=== PATIENT | male | born 1980 | race Hispanic/Latino ===

== ENCOUNTER 2021-12-19 13:31 | Emergency (ER) | payer OTHER ==
[~2021-12-19] VITALS: Ht 160 cm; Wt 77.1 kg
[2021-12-19 14:10] LABS: BASOPHILS % (AUTO) 0.4 % (0.0-5.0); EOSINOPHILS % (AUTO) 0.7 % (0.0-8.0); HEMATOCRIT 45.1 % (42-54); LYMPHOCYTES % (AUTO) 14.1 % (21.0-51.0); MEAN CORPUSCULAR HEMOGLOBIN 30.1 pg (27.0-33.0); MEAN CORPUSCULAR HGB CONC 35.5 g/dL (32.0-36.0); MEAN CORPUSCULAR VOLUME 84.9 fL (79-99); MONOCYTES % (AUTO) 5.8 % (3.0-13.0); NEUTROPHILS % (AUTO) 78.4 % (40.0-77.0); PLATELET COUNT (AUTO) 261 K/uL (130-400); RED BLOOD CELL COUNT(AUTO) 5.31 MIL/uL (4.50-6.20); RED CELL DISTRIBUTION WIDTH 12.8 % (11.0-15.5); WHITE BLOOD COUNT (AUTO) 11.8 K/uL (4.8-10.8)
[2021-12-19 14:20] LABS: APPEARANCE,URINE CLOUDY (CLEAR); BILIRUBIN,URINE NEGATIVE (NEGATIVE); COLOR,URINE YELLOW (YELLOW); CREATININE 1.3 mg/dL (0.5-1.5); GLUCOSE, URINE (UA) NEGATIVE (NEGATIVE); KETONES,URINE NEGATIVE (NEGATIVE); LEUKOCYTE ESTERASE ,URINE NEGATIVE Leu/uL (NEGATIVE); NITRATE,URINE NEGATIVE (NEGATIVE); OCCULT BLOOD,URINE LARGE (NEGATIVE); PH,URINE 6.5 (5.0-8.0); PROTEIN,URINE 100 mg/dL (NEGATIVE)
[2021-12-19 14:24] LABS: ALBUMIN 4.4 g/dL (3.5-5.0); TOTAL PROTEIN, SERUM 8.5 g/dL (6.0-8.3)
[2021-12-19] MEDS ORDERED: KETOROLAC 15MG/ML VIAL (15MG/ML) IV ONE (14:30)
[2021-12-19] MEDS ORDERED: 0.9%NACL 1000ML 1,000 ML IV ONE (14:30)
[2021-12-19] MEDS ORDERED: MORPHINE 4 MG SYG IVP ONE (14:30)
[2021-12-19] MEDS ORDERED: ONDANSETRON 4MG INJ IVP ONE (14:30)
[2021-12-19 14:35] LABS: BACTERIA,URINE RARE /HPF (None Seen); CALCIUM OXALATE CRYSTALS,UR RARE /LPF (None Seen); MUCUS,URINE MANY LPF (None Seen); RBC,URINE >100 /HPF (0-1); SQUAMOUS EPITHELIAL CELL,UR RARE /HPF (0-2)
[2021-12-19 16:49] VITALS: BP 118/78
[2021-12-19] MEDS ORDERED: NAPR500T6 PO (17:29)
[2021-12-19] MEDS ORDERED: ACET-2079 PO (17:29)
[2021-12-19] MEDS ORDERED: ONDA4TAB10 PO (17:29)
[2021-12-19] MEDS ORDERED: TAMS-1 PO (17:29)
[2021-12-19] MEDS ORDERED: MORPHINE 2 MG SYG IVP ONE (17:30)
== END 2021-12-19 17:39 | disposition home or self-care (01) ==
LOC: EDH 13:31
DX: N20.1 Calculus of ureter (principal)
CPT/HCPCS: 99284; 74176; 96374; 96361; 96375; 80053; 83690; 85025; 87088; 81001; 36415; J7030; J2405; J2270; J1885

== ENCOUNTER 2024-09-22 08:26 | Inpatient (IN) | payer SELFPAY ==
[~2024-09-22] VITALS: Ht 152.4 cm; Wt 77.3 kg
[~2024-09-22 08:26] MED LIST: ACET-2079 PO; NAPR-1506 PO; ONDA-243 PO; TAMS-55 PO
--- NOTE | 2024-09-22 08:55 | HMCIMG ---
EXAM: CT Head Without IV contrast. CLINICAL HISTORY: Weakness right upper arm and face TECHNIQUE: Axial computed tomography images of the head/brain without intravenous contrast. COMPARISON: None provided. FINDINGS: BRAIN: No evidence of acute hemorrhage. No mass lesion. No CT evidence for acute territorial infarct. No midline shift or extra-axial collections. VENTRICLES: No hydrocephalus. ORBITS: The orbits are unremarkable. SINUSES AND MASTOIDS: The paranasal sinuses and mastoid air cells are clear. BONES: No fracture. SOFT TISSUES: Unremarkable. IMPRESSION: No acute intracranial abnormality. /[place]
[2024-09-22 09:07] LABS: IMMATURE GRANULOCYTE ABSOLUTE 0.05 K/uL (0-1); NUCLEATED RED BLOOD CELLS 0.0 % (0.0-0.19); PLATELET COUNT (AUTO) 221 K/uL (130-400); RED BLOOD CELL COUNT(AUTO) 5.42 MIL/uL (4.50-6.20); RED CELL DISTRIBUTION WIDTH 13.2 % (11.0-15.5); WHITE BLOOD COUNT (AUTO) 9.0 K/uL (4.8-10.8)
[2024-09-22 09:15] LABS: CREATININE 0.9 mg/dL (0.5-1.3); GLOMERULAR FILTR. RATE CALC 109.0 mL/min (>90); GLUCOSE,RANDOM 111.0 mg/dL (70-105); SODIUM SERUM 140.0 mmol/L (136-145); UREA NITROGEN, BLOOD 10.0 mg/dL (7-18)
[2024-09-22 09:18] LABS: INR <= 0.93 (0.85-1.15)
[2024-09-22 09:20] LABS: CREATINE KINASE, TOTAL 75.0 U/L (21-232); LDL DIRECT 121.0 mg/dL (0-99)
--- NOTE | 2024-09-22 09:34 | HMCIMG ---
EXAM: XR CHEST SINGLE VIEW. HISTORY: CVA. COMPARISON: None. TECHNIQUE: Single frontal view chest radiograph. FINDINGS: Lungs, heart and mediastinum demonstrate no significant findings. IMPRESSION: NO ACUTE CHEST DISEASE. /[place]
--- NOTE | 2024-09-22 09:34 | NUR ---
PEFORMED 3 OZ OF WATER BEDSIDE SWALLOW TEST, AND PATIENT WAS ABLE TO PASS DOWN WATER BUT 30 SECONDS LATER STARTED COUGHING, PATIENT RESTING IN BED, CALL LIGHT IN REACH
--- NOTE | 2024-09-22 09:36 | NUR ---
PATIENT STATED HE STARTED FEELING NUMBNESS ON HIS LEFT UPPER EXTREMITY ABOUT 2 WEEKS AGO TO THE POINT WHERE HE NEEDED TO USE HIS RIGHT ARM TO DIRECTOR OF PHYSICIAN PRACTICES HIS LEFT ARM WHEN LAYING DOWN IN BED
--- NOTE | 2024-09-22 10:41 | ERN ---
General Chief Complaint: Stroke Symptoms Stated Complaint: SLUURED SPEECH, FACIAL DROOP Time Seen by MD: 08:31 Source: patient, family History of Present Illness Initial Comments Patient is a 44-year-old male coming in complaining of left upper arm wea kness/numbness for two weeks. He also states that this morning he woke up with a left facial numbness and difficulty with speech. Allergies: Coded Allergies: No Known Drug Allergies (Unverified Allergy, Unknown, 12/19/21) Home Meds Active Scripts Tamsulosin HCl (Flomax) 0.4 Mg Cap.er.24h, 0.4 MG PO DAILY, #10 CAPSULE. [facility] Ondansetron (Ondansetron Odt) 4 Mg Tab.rapdis, 4 MG PO TID, #10 TAB Prov:[facility] 12/19/21 Naproxen (Naproxen) 500 Mg Tablet., 500 MG PO BIDPC, #15 TAB Prov:[facility] 12/19/21 Acetaminophen with Codeine (Acetaminophen-Cod #3 Tablet) 1 Each Tablet, 1 TAB PO Q4H PRN for PAIN, #7 TAB [facility] 12/19/21 Past Medical History Past Medical History: Other Medical History Other: HX OF LEUKEMIA AGE 9-10 YEARS OLD Past Surgical History: Other, None ROS Dictation CONSTITUTIONAL: No chills, no fever, no weakness, no diaphoresis, no malaise. HEAD/FACE: No signs of trauma. EENT: No eye pain, no blurred vision, no tearing, no double vision, no ear pain, no ear discharge, no nose pain, no nasal congestion, no throat pain, no throat swelling, no mouth pain. RESPIRATORY: No cough, no orthopnea, no SOB, no stridor, no wheezing. CARDIOVASCULAR: No chest pain, no edema, no palpitations, no syncope. GASTROINTESTINAL/ABDOMINAL: No abdominal pain, no constipation, no diarrhea, no nausea, no vomiting. GENITOURINARY: No abnormal discharge, no dysuria, no frequent urination, no hematuria. No complaints of pain in the genitals. MUSCULOSKELETAL: No back pain, no gout, no joint pain, no joint swelling, no muscle pain, no muscle stiffness, no neck pain. INTEGUMENTARY: No change in color, no change in hair/nails, no dryness, no lesion, no lumps, no rash. NEUROLOGICAL/PSYCH: No anxiety, not depressed, no emotional problem, no headache, no numbness, no pre-existing deficit, no history of seizures, no tremors, no weakness. HEMATOLOGIC/LYMPHATIC: Not anemic, no history of blood clots, no apparent bleeding, no bruising, glands not swollen. All Systems Negative, Except as Noted. Physical Exam Physical Exam Dictation VITAL SIGNS: Reviewed. GENERAL APPEARANCE: Alert, oriented x3, no acute distress, obese. HEAD AND FACE: Non-traumatic. EYES: PERRL, pink conjunctivas, eyelid no trauma, anterior chamber clear. EARS: Pinnas intact and no signs of trauma or erythema. Ear canals clear and no discharge. TMs no erythema. NOSE: No discharge, no bleeding. OROPHARYNX: Mouth normal, teeth no caries, tongue pink. Pharynx clear, no erythema. Tonsils no exudates, no abscesses noted. Mucous membrane moist. NECK: Supple, non-tender, no thyromegaly, no masses, no JVD, no bruits. BREAST: Deferred. CHEST: No tenderness, no crepitus, no paradoxical movement, no retractions. LUNGS: Clear, well-ventilated, symmetric, no rales, no wheezing, no rhonchi, no stridor, good breath sounds bilaterally. HEART: Regular rate, regular rhythm, no murmur, no gallops. VASCULAR: No peripheral edema. ABDOMEN: Soft, positive bowel sounds, nondistended, no guarding, nontender, no rebound, no masses no hepatomegaly, no splenomegaly, no Beard's sign, no hernias. RECTAL: Deferred. GENITAL: Deferred. NEUROLOGICAL: Altered speech, gross motor function intact, decreased sensory function intact. MUSCULOSKELETAL: Neck nontender, full range of motion, back nontender, full range of motion. EXTREMITIES: Nontender, full range of motion. SKIN: Color pink, dry, no turgor, no rash, no lacerations, no abrasions, no contusions. LYMPHATICS: Deferred. NIH STROKE SCALE: NIH STROKE SCALE Response (Comments) Value Level of Consciousness Alert 0 Ask patient month and their age Answers both correct 0 Command to open eyes, make fist and let go Obeys both correct 0 Best gaze (horizontal eye movement) Normal 0 Visual Field Testing No Visual Field Loss 0 Facial Paresis Minor Paralysis 1 Motor Function - Left Arm Drift 1 Motor Function - Right Arm Normal 0 Motor Function - Left Leg Normal 0 Motor Function - Right Leg Normal 0 Limb Ataxia Present in 1 limb 1 Sensory-pin prick to arms, legs, trunk and face Normal 0 Best Language (describe picture, name items and read) No Aphasia 0 Dysarthria (read several words) Mild-Mod. Slurring Words 1 Extinction and Inattention Normal 0 Total Results Laboratory and Microbiology Lab and Micro Result Laboratory Tests Test 09/22/24 08:33 09/22/24 08:55 09/22/24 09:40 Whole Blood Glucose 116 MG/DL (70-110) H 98 MG/DL (70-110) Bedside Glucose Comment Notified Nurse White Blood Count 9.0 K/uL (4.8-10.8) Red Blood Count 5.42 MIL/uL (4.50-6.20) Hemoglobin 17.0 g/dL (14.0-18.0) Hematocrit 47.5 % (42-54) Mean Corpuscular Volume 87.6 fL (79-99) Mean Corpuscular Hemoglobin 31.4 pg (27.0-33.0) Mean Corpuscular Hemoglobin Concent 35.8 g/dL (32.0-36.0) Red Cell Distribution Width 13.2 % (11.0-15.5) Platelet Count 221 K/uL (130-400) Mean Platelet Volume 9.9 fL (7.5-10.5) Immature Granulocyte % (Auto) 0.6 % (0-1) Neutrophils (%) (Auto) 55.9 % (40.0-77.0) Lymphocytes (%) (Auto) 31.3 % (21.0-51.0) Monocytes (%) (Auto) 7.5 % (3.0-13.0) Eosinophils (%) (Auto) 4.4 % (0.0-8.0) Basophils (%) (Auto) 0.3 % (0.0-5.0) Neutrophils # (Auto) 5.0 K/uL (1.8-7.7) Lymphocytes # (Auto) 2.8 K/uL (1.0-4.8) Monocytes # (Auto) 0.7 K/uL (0.1-1.0) Eosinophils # (Auto) 0.40 K/uL (0.00-0.70) Basophils # (Auto) 0.03 K/uL (0.00-0.20) Absolute Immature Granulocyte (auto 0.05 K/uL (0-1) Nucleated Red Blood Cells 0.0 % (0.0-0.19) Prothrombin Time 9.8 SEC (9.6-11.6) Prothromb Time International Ratio <= 0.93 (0.85-1.15) Activated Partial Thromboplast Time 26.4 SEC (26.3-35.5) Sodium Level 140 mmol/L (136-145) Potassium Level 3.3 mmol/L (3.5-5.1) L Chloride Level 103 mmol/L (101-111) Carbon Dioxide Level 31 mmol/L (21-32) Blood Urea Nitrogen 10 mg/dL (7-18) Creatinine 0.9 mg/dL (0.5-1.3) Glomerular Filtration Rate Calc 109 mL/min (>90) Random Glucose 111 mg/dL (70-105) H Total Calcium 8.8 mg/dL (8.5-10.1) Total Creatine Kinase 75 U/L (21-232) Troponin I High Sensitivity < 4 ng/L (4-75) L LDL Cholesterol 121 mg/dL (0-99) H Labs Reviewed?: Yes EKG/XRAY/US/CT/MRI EKG Comment 09/22/2024 time 9:46 a.m. Ventricular rate 68 Sinus rhythm [place] [address] wave elevation or depression X-RAY Comment IMAGING REPORT Signed PATIENT: BUSHRA MARKS MR#: [id number] : 1980 SEX: M AGE: 44 LOCATION: ED ORDER 4 STATUS: [facility] REPORT#: [id number] SERVICE REASON: cva ORDERING PHYSICIAN: TANIA BRUNO MD PROCEDURE: CXR1VW - CHEST 1VW EXAM: XR CHEST SINGLE VIEW. HISTORY: CVA. COMPARISON: None. TECHNIQUE: Single frontal view chest radiograph. FINDINGS: Lungs, heart and mediastinum demonstrate no significant findings. IMPRESSION: NO ACUTE CHEST DISEASE. /[place] DICTATED BY: GEOREG CHILDERS Jr., MD DATE: 09/22/24 103 ELECTRONICALLY SIGNED BY: GEORGE CHILDERS Jr., MD DATE: 09/22/[address] Scan Comment IMAGING REPORT Signed PATIENT: BUSHRA MARKS MR#: [id number] : 1980 SEX: M AGE: 44 LOCATION: EDH ORDER 4 STATUS: [facility] REPORT#: [id number] SERVICE 2 REASON: weakness right upper arm/ and face ORDERING PHYSICIAN: TANIA BRUNO MD PROCEDURE: HEAD WO - CT HEAD/BRAIN W/O CONTRAST EXAM: CT Head Without IV contrast. CLINICAL HISTORY: Weakness right upper arm and face TECHNIQUE: Axial computed tomography images of the head/brain without intravenous contrast. COMPARISON: None provided. FINDINGS: BRAIN: No evidence of acute hemorrhage. No mass lesion. No CT evidence for acute territorial infarct. No midline shift or extra-axial collections. VENTRICLES: No hydrocephalus. ORBITS: The orbits are unremarkable. SINUSES AND MASTOIDS: The paranasal sinuses and mastoid air cells are clear. BONES: No fracture. SOFT TISSUES: Unremarkable. IMPRESSION: No acute intracranial abnormality. /[place] DICTATED BY: GEORGE CHILDERS Jr., MD DATE: 09/22/24953 ELECTRONICALLY SIGNED BY: GEORGE CHILDERS Jr., MD DATE: 09/22/24953 [facility] MDM: Differential diagnosis: CVA, TIA, Rationale: Tests considered and ordered secondary to shared decision making include: labs, ECG and radiology Previous outside records reviewed: Old ER visits. Risk of complication and/or morbidity or mortality of patient management: None Medications-Per medication reconciliation Need for hospitalization: Patient does meet criteria for hospitalization. Need for emergency major/minor surgery: No There are no social concerns with this patient. Prescription drug management Prescriptions will include symptomatic care Patient's prior external medical records from other ER visits were reviewed by me as indicated. Prior testing and results from previous visits were reviewed. Prior tests were taken into account with medical decision making and resource utilization, independent historian/historians were used to obtain complete medical history. I independently interpreted the test that were performed, results were reviewed by me and considered findings on radiology if ordered. Medical management and examination interpretation discussions were had by me with other qualified healthcare professionals as indicated for the patient's care. Patient will be admitted under the care of hospitalist group. ED Course Orders Procedure Category Date Status Time Cbc With Differential LAB 09/22/24 Complete 08:33 Prothrombin Time With LAB 09/22/24 Complete INR 08:33 Partial LAB 09/22/24 Complete Thromboplastin Time 08:33 Ct Head/Brain W/O CT 09/22/24 Resulted Contrast 08:33 Chest 1vw RAD 09/22/24 Resulted 08:33 12 Lead Ekg Tracing- EKG 09/22/24 Logged Technical 08:33 Creatine Kinase, Total LAB 09/22/24 Complete 08:33 Ldl Direct LAB 09/22/24 Complete 08:33 Troponin I High LAB 09/22/24 Complete Sensitivity 08:33 Urinalysis Profile LAB 09/22/24 Logged 08:33 Bedside Glucose CPOE 09/22/24 Transmitted Fingerstick 08:33 Complete Nih Stroke CPOE 09/22/24 Transmitted Scale 08:33 Basic Metabolic Panel LAB 09/22/24 Complete 08:33 Drug Screen Urine LAB 09/22/24 Logged 08:33 Acetaminophen 500mg PHA 09/22/24 Complete Tab (Tylenol 500mg T 11:00 Morphine 2mg Syg PHA 09/22/24 Complete (Morphine 2mg Syg) 11:00 Ondansetron 4mg Inj PHA 09/22/24 Complete (Zofran 4mg Inj) 11:00 Current Medications Medications (Trade) Dose Ordered Sig/Shayne Route PRN Reason Start Time Stop Time Status Last Admin Dose Admin Acetaminophen (TYLenol 500MG TAB) 500 mg ONCE ONCE PO 09/22/24 11:00 09/22/24 11:01 DC Morphine Sulfate (morPHINE 2MG SYG) 2 mg ONCE ONCE IVP 09/22/24 11:00 09/22/24 11:01 DC Ondansetron HCl (zoFRAN 4MG INJ) 4 mg ONCE ONCE IVP 09/22/24 11:00 09/22/24 11:01 DC Vital Signs Date Time Temp Pulse Resp B/P (MAP) Pulse Ox O2 Delivery O2 Flow Rate FiO2 09/22/24 10:34 98.4 72 22 126/78 97 Room Air* 0 09/22/24 09:00 98.6 80 17 138/96 97 Room Air* 0 09/22/24 08:34 97.9 80 16 155/105 99 Room Air 0 DX & DISP Disposition: Inpatient Decision to Admit Time: 11:07 Departure Impression: Primary Impression: CVA (cerebral vascular accident) Additional Impression: TIA (transient ischemic attack) Condition: Stable Referrals: SELF,REFERRAL (PCP) TANIA BRUNO MD Sep 22, 2024 10:41
[2024-09-22 12:22] LABS: APPEARANCE,URINE CLEAR (CLEAR); GLUCOSE, URINE (UA) NEGATIVE (NEGATIVE); LEUKOCYTE ESTERASE ,URINE NEGATIVE Leu/uL (NEGATIVE); NITRATE,URINE NEGATIVE (NEGATIVE); OCCULT BLOOD,URINE NEGATIVE (NEGATIVE)
[2024-09-22 12:27] LABS: ADD UA MICROSCOPIC YES
[2024-09-22 12:30] LABS: AMPHET/METH SCREEN,URINE NEGATIVE (NEGATIVE); BARBITURATE SCREEN, URINE NEGATIVE (NEGATIVE); CANNABINOID SCREEN,URINE NEGATIVE (NEGATIVE); COCAINE SCREEN,URINE POSITIVE (NEGATIVE)
--- NOTE | 2024-09-22 12:53 | HP ---
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 He described the onset as abrupt, without any preceding trauma or provoking factor. The patient reported that he had been experiencing weakness in his left arm for the past two weeks but had dismissed it as fatigue from working night shifts. He described a general sense of tiredness and poor sleep, which he and his have attributed to his demanding schedule and night shifts. He denied any involvement of the lower extremities, and there were no associated symptoms such as vision changes, chest pain, shortness of breath, or loss of consciousness. Denied any prior history of similar symptoms, myocardial infarction, stroke, or previous hospitalizations. At the time of presentation, the patient was afebrile with a blood pressure of 155/105 mmHg; other vital signs were unremarkable. Laboratory results revealed an unremarkable CBC, potassium of 3.3, negative troponin, and other electrolytes within normal li mits. LDL cholesterol was 121, and TSH was mildly elevated at 4.86. Urine toxicology was positive for opiates and cocaine. The patient has a 10+ year history of smoking one pack of cigarettes daily and reports occasional marijuana use. He denies any alcohol consumption. However, per his he is clean and drug free for 5 years. Many years ago, he was hit by a cow in which he sustained trauma to his right upper extremity, and since then, he has experienced intermittent tingling and weakness in that arm symptoms that he reports have remained relatively unchanged until today. He does not have a primary care physician and cannot recall the last time he sought medical attention. According to his , he often seems unwell and exhausted, though he has never pursued evaluation. * The patient was evaluated in ED Room 13 with his sister present at the bedside. Vital signs at the time of assessment included a blood pressure of 147/96 mmHg, pulse rate of 69 bpm, and he was breathing comfortably on room air. The patient was noted to have obvious left-sided facial droop, with disorganized and ridyphxpc-fx-fdmigkwlag speech. He also reports a headache. Estimated NIHSS score is 11 indicates moderate stroke severity. A non- contrast CT head showed no evidence of acute intracranial pathology. However, brain MRI revealed an acute non-hemorrhagic infarct involving the right frontoparietal and temporal lobes, along with mild stenosis of the right M1 and M2 segments of the middle cerebral artery. The patient will receive a 300 mg aspirin suppository at this time. Neurology consultation has been requested. Assessment and plan are outlined below. REVIEW OF SYSTEMS CONSTITUTIONAL: Denies fevers, chills, or night sweats. No unintentional weight loss reported. NEUROLOGICAL: The patient admits frontal and parietal headaches, reports motor weakness involving the left side of the face, as well as weakness in both the left and right upper extremities. no amaurosis fugax, sensory deficit, vertigo/spinning sensation, gait abnormalities, or tremors. ENT: No hearing loss, otalgia, otorrhea, rhinitis, rhinorrhea, hoarseness, or sore throat. CARDIOVASCULAR: Denies any exertional angina, dyspnea on exertion, orthopnea, paroxysmal nocturnal dyspnea, palpitations, life-threatening arrhythmias, claudication. PULMONARY: Denies any shortness of breath, cough, phlegm/sputum, hemoptysis, pleuritic chest pain. SLEEP: Admits morning headaches, Denies difficulty falling asleep, staying asleep, waking from sleep. Admits knowledge of snoring. GASTROINTESTINAL: Denies any type of dysphagia to either liquids or solids. Denies nausea, vomiting, pyrosis, early satiety, abdominal pain, diarrhea, constipation, or changes in stool consistency or caliber. Denies coffee-ground emesis, hematemesis, hematochezia, or melanotic stools. GENITOURINARY: Denies frequency, urgency, nocturia, hematuria or incontinence (Storage/Irritative symptoms.) Low urinary stream, straining to void, urinary intermittency or hesitancy, splitting of the voiding stream, terminal dribbling. ENDOCRINOLOGIC: Denies polyuria, polydipsia, polyphagia or heat/cold intolerances. HEMATOLOGIC: Denies thrombophilia/previous clots, or coagulopathy/bleeding disorders. ONCOLOGIC: Denies personal history of malignancy. DERMATOLOGIC: Denies rashes or pruritus. PSYCHIATRIC: Denies any suicidal or homicidal ideation. Denies hallucinations. PAST MEDICAL HISTORY: H/o leukemia as a child PAST SURGICAL HISTORY: Reports no history of prior surgical procedures. PAST SOCIAL HISTORY: Tobacco: Smokes 1 pack of cigarettes daily for over 10+ years Alcohol: Denies alcohol use Illicit Drugs: Admits to occasional marijuana use FAMILY HISTORY: No notable family history of medical conditions reported. Coded Allergies: No Known Drug Allergies (Unverified Allergy, Unknown, 12/19/21) PHYSICAL EXAM GENERAL APPEARANCE: The patient is awake, alert, and oriented, in no acute cardiopulmonary distress. NEUROLOGICAL: Mental Status: Alert and oriented 3, speech disorganized and difficult to understand Cranial Nerves: CN VII: Left-sided facial weakness involving both upper and lower face; unable to raise both eyebrows, forehead wrinkling absent, Examination of other cranial nerves was limited due to patient discomfort. Motor: Decreased clinical appeals rn strength in the left upper extremity Weakness noted in left upper extremity, Lower extremity strength preserved HEENT: Pupils are equal and reactive. Extraocular movements are intact. NECK: Supple. No JVD. No thyromegaly. No submental, submandibular, pre- /postauricular, occipital or supraclavicular lymphadenopathy. CHEST: Normal chest expansion. No Telemetry. LUNGS: Absence of any rales, rhonchi or any wheezing. CARDIOVASCULAR: Regular. S1 and S2 normal. No appreciable rubs, murmurs or gallops. ABDOMEN: Soft, nontender, and nondistended. There is no rebound, voluntary guarding, or rigidity. : Deferred. No Hubbard. EXTREMITIES: Non-edematous and not cyanotic. No clubbing. Good capillary re fill. SKIN: No skin breakdown. Vital Sign (Last 24 Hours) 09/22/24 12:19 Temp 98.4 Pulse 62 Resp 19 B/P (MAP) 144/87 Pulse Ox 99 O2 Delivery Room Air* O2 Flow Rate 0 FiO2 21 LABS: Laboratory: Test 09/22/24 12:02 09/22/24 09:40 09/22/24 08:55 09/22/24 08:33 Range/Units Urine Color YELLOW YELLOW Urine Appearance CLEAR CLEAR Urine pH 6.0 5.0-8.0 Urine Specific [place] 1.026 1.001-1.031 Urine Protein 20 H NEGATIVE mg/dL Urine Glucose (UA) NEGATIVE NEGATIVE mg/dL Urine Ketones NEGATIVE NEGATIVE mg/dL Urine Occult Blood NEGATIVE NEGATIVE Urine Nitrate NEGATIVE NEGATIVE Urine Bilirubin NEGATIVE NEGATIVE mg/dL Urine Urobilinogen 0.2 0.2-1.0 mg/dL Urine Leukocyte Esterase NEGATIVE NEGATIVE Kassie/uL Urine RBC 2-5 H 0-1 /HPF Urine WBC 2-5 H 0-1 /HPF Urine Bacteria None Seen None Seen /HPF Urine Opiates Screen POSITIVE H NEGATIVE Urine Barbiturates Screen NEGATIVE NEGATIVE Urine Phencyclidine Screen NEGATIVE NEGATIVE Urine Amphetamines Screen NEGATIVE NEGATIVE Urine Benzodiazepines Screen NEGATIVE NEGATIVE Urine Cocaine Screen POSITIVE H NEGATIVE Urine Marijuana (THC) Screen NEGATIVE NEGATIVE Whole Blood Glucose 98 70-110 MG/DL White Blood Count 9.0 4.8-10.8 K/uL Red Blood Count 5.42 4.50-6.20 MIL/uL Hemoglobin 17.0 14.0-18.0 g/dL Hematocrit 47.5 42-54 % Mean Corpuscular Volume 87.6 79-99 fL Mean Corpuscular Hemoglobin 31.4 27.0-33.0 pg Mean Corpuscular Hemoglobin Concent 35.8 32.0-36.0 g/dL Red Cell Distribution Width 13.2 11.0-15.5 % Platelet Count 221 130-400 K/uL Mean Platelet Volume 9.9 7.5-10.5 fL Immature Granulocyte % (Auto) 0.6 0-1 % Neutrophils (%) (Auto) 55.9 40.0-77.0 % Lymphocytes (%) (Auto) 31.3 21.0-51.0 % Monocytes (%) (Auto) 7.5 3.0-13.0 % Eosinophils (%) (Auto) 4.4 0.0-8.0 % Basophils (%) (Auto) 0.3 0.0-5.0 % Neutrophils # (Auto) 5.0 1.8-7.7 K/uL Lymphocytes # (Auto) 2.8 1.0-4.8 K/uL Monocytes # (Auto) 0.7 0.1-1.0 K/uL Eosinophils # (Auto) 0.40 0.00-0.70 K/uL Basophils # (Auto) 0.03 0.00-0.20 K/uL Absolute Immature Granulocyte (auto 0.05 0-1 K/uL Nucleated Red Blood Cells 0.0 0.0-0.19 % Prothrombin Time 9.8 9.6-11.6 SEC Prothromb Time International Ratio <= 0.93 0.85-1.15 Activated Partial Thromboplast Time 26.4 26.3-35.5 SEC Sodium Level 140 136-145 mmol/L Potassium Level 3.3 L 3.5-5.1 mmol/L Chloride Level 103 101-111 mmol/L Carbon Dioxide Level 31 21-32 mmol/L Blood Urea Nitrogen 10 7-18 mg/dL Creatinine 0.9 0.5-1.3 mg/dL Glomerular Filtration Rate Calc 109 >90 mL/min Random Glucose 111 H 70-105 mg/dL Total Calcium 8.8 8.5-10.1 mg/dL Total Creatine Kinase 75 21-232 U/L Troponin I High Sensitivity < 4 L 4-75 ng/L LDL Cholesterol 121 H 0-99 mg/dL Bedside Glucose Comment Notified Nurse Current Medications Medications (Trade) Dose Ordered Sig/Shayne Route PRN Reason Start Time Stop Time Status Last Admin Dose Admin Acetaminophen (TYLenol 325MG TAB) 650 mg Q4H PRN PO MILD PAIN (1-3) 09/22/24 12:30 09/22/24 12:31 DC Acetaminophen (TYLenol 325MG TAB) 650 mg Q6H PRN PO TEMPERATURE GREATER THAN 101.5 09/22/24 12:30 09/22/24 12:31 DC Amlodipine Besylate (NorvASC 2.5MG TAB) 2.5 mg DAILY PO 09/23/24 09:00 10/23/24 08:59 Aspirin (Aspirin 81mg Chew Tab) 81 mg DAILY PO 09/23/24 09:00 10/23/24 08:59 Atorvastatin Calcium (LIPItor 40MG) 40 mg HS PO 09/22/24 21:00 10/22/24 20:59 Enoxaparin Sodium (Lovenox) 30 mg DAILY SQ 09/23/24 09:00 10/23/24 08:59 Famotidine (Pepcid 20mg Vial) 20 mg BID IV 09/22/24 21:00 10/22/24 20:59 Morphine Sulfate (morPHINE 2MG SYG) 1 mg Q6H PRN IVP MODERATE PAIN (4-6) 09/22/24 12:30 09/29/24 12:29 Morphine Sulfate (morPHINE 2MG SYG) 2 mg Q4H PRN IVP SEVERE PAIN (7-10) 09/22/24 12:30 09/29/24 12:29 Ondansetron HCl (zoFRAN 4MG INJ) 4 mg Q6H PRN IV NAUSEA/VOMITING 09/22/24 12:30 10/22/24 12:29 Potassium Chloride 100 ml @ 50 mls/hr AD PRN IV POTASSIUM PROTOCOL 09/22/24 12:30 10/22/24 12:29 Sodium Chloride 1,000 ml @ 75 mls/hr [id number] IV 09/22/24 12:30 10/22/24 12:29 DIAGNOSTICS / RADIOLOGY: [place] [address] [place] [address] IMAGING REPORT Signed PATIENT: BUSHRA MARKS MR#: [id number] : 1980 SEX: M AGE: 44 LOCATION: [facility] ORDER 4 STATUS: REG ER [facility] REPORT#: [id number] SERVICE 08 REASON: cva ORDERING PHYSICIAN: TANIA BRUNO MD PROCEDURE: CXR1VW - CHEST 1VW EXAM: XR CHEST SINGLE VIEW. HISTORY: CVA. COMPARISON: None. TECHNIQUE: Single frontal view chest radiograph. FINDINGS: Lungs, heart and mediastinum demonstrate no significant findings. IMPRESSION: NO ACUTE CHEST DISEASE. /[place] DICTATED BY: GEORGE CHILDERS Jr., MD DATE: 09/22/24 103 ELECTRONICALLY SIGNED BY: GEORGE CHILDERS Jr., MD DATE: 09/22/24 1032 [place] [address] [id number] IMAGING REPORT Signed PATIENT: BUSHRA MARKS MR#: [id number] : 1980 SEX: M AGE: 44 LOCATION: [facility] ORDER STATUS: REG ER REPORT#: [id number] SERVICE 0833 REASON: weakness right upper arm/ and face ORDERING PHYSICIAN: TANIA BRUNO MD PROCEDURE: HEAD WO - CT HEAD/BRAIN W/O CONTRAST EXAM: CT Head Without IV contrast. CLINICAL HISTORY: Weakness right upper arm and face TECHNIQUE: Axial computed tomography images of the head/brain without intravenous contrast. COMPARISON: None provided. FINDINGS: BRAIN: No evidence of acute hemorrhage. No mass lesion. No CT evidence for acute territorial infarct. No midline shift or extra-axial collections. VENTRICLES: No hydrocephalus. ORBITS: The orbits are unremarkable. SINUSES AND MASTOIDS: The paranasal sinuses and mastoid air cells are clear. BONES: No fracture. SOFT TISSUES: Unremarkable. IMPRESSION: No acute intracranial abnormality. /[place] DICTATED BY: GEORGE CHILDERS Jr., MD DATE: 09/22/24953 ELECTRONICALLY SIGNED BY: GEORGE CHILDERS Jr., MD DATE: 09/22/[address] [place] [address] IMAGING REPORT Addendum PATIENT: BUSHRA MARKS MR#: [id number] : 1980 SEX: M AGE: 44 LOCATION: [facility] ORDER STATUS: ADM IN REPORT#: [id number] SERVICE 1222 REASON: S/s facial droop, dysarthria, r/o stroke ORDERING PHYSICIAN: FRANCHESKA CANDELARIA MD PROCEDURE: BRAIN WWO - MR BRAIN WWO CON ADDENDUM REPORT ADDENDUM: Results were shared by telephone at 3:22 pm on 09-22-24 and acknowledged by Francheska Fry. /[place] EXAM: MR Brain with and without Intravenous Contrast. CLINICAL HISTORY: hx stroke like symptoms TECHNIQUE: Multisequence, multiplanar magnetic resonance images acquired of the brain with and without intravenous contrast. COMPARISON: CT images from earlier today FINDINGS: BRAIN: Multifocal areas of diffusion restriction with corresponding low ADC values in the right fronto-parietal and temporal lobes. No intracranial mass or hemorrhage. No midline shift or extra-axial fluid collection. No cerebellar tonsillar ectopia. No abnormal enhancement. Mild luminal narrowing of the M1 and M2 segments of the right middle cerebral artery. VENTRICLES: No hydrocephalus. ORBITS: The orbits are normal. SINUSES AND MASTOIDS: The sinuses and mastoid air cells are clear. BONES: No acute fracture or aggressively appearing osseous lesion. IMPRESSION: 1. Acute non-hemorrhagic infarcts in the right fronto-parietal and temporal lobes with mild stenosis of the right M1 and M2 segments of middle cerebral artery. /[place] DICTATED BY: GEORGE CHILDERS Jr., MD DATE: 09/22/241529 ELECTRONICALLY SIGNED BY: DATE: EXAM: MR Brain with and without Intravenous Contrast. CLINICAL HISTORY: hx stroke like symptoms TECHNIQUE: Multisequence, multiplanar magnetic resonance images acquired of the brain with and without intravenous contrast. COMPARISON: CT images from earlier today FINDINGS: BRAIN: Multifocal areas of diffusion restriction with corresponding low ADC values in the right fronto-parietal and temporal lobes. No intracranial mass or hemorrhage. No midline shift or extra-axial fluid collection. No cerebellar tonsillar ectopia. No abnormal enhancement. Mild luminal narrowing of the M1 and M2 segments of the right middle cerebral artery. VENTRICLES: No hydrocephalus. ORBITS: The orbits are normal. SINUSES AND MASTOIDS: The sinuses and mastoid air cells are clear. BONES: No acute fracture or aggressively appearing osseous lesion. IMPRESSION: 1. Acute non-hemorrhagic infarcts in the right fronto-parietal and temporal lobes with mild stenosis of the right M1 and M2 segments of middle cerebral artery. /[place] DICTATED BY: GEORGE CHILDERS Jr., MD DATE: 09/22/241507 ELECTRONICALLY SIGNED BY: GEORGE CHILDERS Jr., MD DATE: 09/22/241507 [address] [address] IMAGING REPORT Addendum PATIENT: BUSHRA MARKS MR#: [id number] : 1980 SEX: M AGE: 44 LOCATION: ED[facility]IP ORDER 1235 STATUS: ADM IN REPORT#: [id number] SERVICE 1233 REASON: Slurred speech, dysarthria, r/o stroke ORDERING PHYSICIAN: FRANCHESKA CANDELARIA MD PROCEDURE: CAROTID - US CAROTID DUPLEX ADDENDUM REPORT ADDENDUM: Results were shared by telephone at 5:07 pm on 09-22-24 and acknowledged by FRANCHESKA Fry. /[place] ADDENDUM: EXAM: US Duplex Bilateral Carotid and Vertebral Arteries. CLINICAL HISTORY: Slurred speech, dysarthria, r/o stroke TECHNIQUE: Real-time ultrasound scan of the bilateral carotid and vertebral arteries, 2-D alcaraz scale, with color Doppler flow and spectral waveform analysis. COMPARISON: None provided. FINDINGS: RIGHT COMMON CAROTID ARTERY: No occlusion or significant stenosis. RIGHT INTERNAL CAROTID ARTERY: No occlusion or significant stenosis. RIGHT EXTERNAL CAROTID ARTERY: No occlusion or significant stenosis. RIGHT VERTEBRAL ARTERY: Antegrade flow. RIGHT ICA/CCA RATIO: Within normal limits. LEFT COMMON CAROTID ARTERY: No occlusion or significant stenosis. LEFT INTERNAL CAROTID ARTERY: No occlusion or significant stenosis. LEFT EXTERNAL CAROTID ARTERY: No occlusion or significant stenosis. LEFT VERTEBRAL ARTERY: Antegrade flow. LEFT ICA/CCA RATIO: Within normal limits. SOFT TISSUES: No incidental abnormalities. IMPRESSION: No hemodynamically significant stenosis by NASCET criteria. Results were relayed to the clinical team at the time of this addendum. /[place] ASSESSMENT: Acute ischemic stroke-right frontoparietal and temporal lobes POA Tobacco use disorder, POA Polysubstance use (cocaine, opiates, marijuana) POA Hypokalemia POA High risk for obstructive sleep apnea, STOP BANG SCORE 3, POA Subclinical hypothyroidism, TSH 4.86 POA Class I obesity (BMI 30.67 kg/m) PLAN: The patient will be admitted on the medical surgical floor under telemetry monitoring. Acute ischemic stroke-right frontoparietal and temporal lobes POA * Imaging: Non-contrast CT head negative for hemorrhage; MRI brain shows acute non-hemorrhagic infarct in the right frontoparietal and temporal lobes. Patient does not meet criteria for thrombolysis due to symptom onset exceeding the 4.5-hour window. Pending Workup: CTA head and neck and transthoracic echocardiogram for cardioembolic evaluation. * Medications: Start with aspirin 81 mg and atorvastatin 40 mg daily for second mukund prevention. * Swallow status: Patient failed bedside swallow evaluation multiple times today. Remains NPO due to risk of aspiration; re-evaluation by speech therapy scheduled in 2 days for possible modified barium swallow (MBSS). * Continue 0.9% NaCl at 75 mL/hour for gentle IV fluid support while NPO. * Blood pressure goal: Maintain permissive hypertension unless BP exceeds 220/ 120 mmHg or clinically indicated to lower; specific goal pending neurology input. * Neurologist Dr. Garcia has been notified; Awaiting recommendations. * Daily Physical therapy. * The patient will be closely monitored on telemetry for the first 24 hours and can be discontinued thereafter if clinically stable. continue neurological checks per stroke protocol. Tobacco use disorder, POA Polysubstance use (cocaine, opiates, marijuana) POA * The patient reports marijuana use. According to his , he has a history of cocaine abuse but has been clean for the past 5 years. However, toxicology screening is positive for opioids and cocaine.We conducted comprehensive counseling with the patient regarding his polysubstance use, including cocaine, opiates, and marijuana. The discussion focused on the significant health risks associated with these substances, particularly their contribution to cardiovascular and cerebrovascular events, including stroke. The patient was advised on the importance of cessation. Hypokalemia POA * Potassium level on admission was 3.3; continue following the hypokalemia protocol for NPO status and provide potassium replacement as clinically indicated. High risk for obstructive sleep apnea, STOP BANG SCORE 3, POA * The patient is considered high risk for obstructive sleep apnea; recommendations for a sleep study will be provided at the time of discharge. P.r.n. medications for fever, pain, nausea, and constipation. DVT prophylaxis: Heparin 5000 IU subcutaneous TID. GI prophylaxis: Famotidine 20 mg IV b.i.d. daily. A.m. labs: CBC, BMP ADVANCED CARE PLANNING 1. Which of the following were discussed? Hospice Care - Yes / No Therapeutic options - Yes / No Advance Directives - Yes / No Other discussions - 2. Discussed with who? The patient 3. Voluntary nature of this service was explained to the patient? Yes / No 4. Amount of time spent - 10 minutes_ 5. Reviewed by Physician? Yes / No ATTESTATION BY PHYSICIAN I have seen and examined the patient. I reviewed the documentation, medical decision making, and treatment plan as noted by the resident provider above. I agree with the findings and plan of care. Daniel Hansen MD, MANALI MD Sep 22, 2024 12:53
--- NOTE | 2024-09-22 13:47 | NUR ---
DR ALICIA NOTIFIED OF CONSULT
--- NOTE | 2024-09-22 14:00 | NUR ---
BEDSIDE SWALLOW EVAL COMPLETED. Pt with +s/s of aspiration. Recommend NPO, short term alternate means of nutrition/hydration and re-evaluation within 2-3 days. BRAID CUTTER reviewed results and recommendations with patient and nurse Osmar. BRAID CUTTER educated patient on risks and consequences of aspiration. Speech therapy will follow up with re-evaluation when appropriate. All questions answered. Addendum: 09/22/[address] [facility] HEATON Amended: Links added.
--- NOTE | 2024-09-22 14:05 | NUR ---
COGNITIVE-LINGUISTIC EVALUATION. Pt PRESENTED WITH MILD LANGUAGE AND MODERATE COGNITIVE LINGUISTIC DEFICITS. Pt ALSO PRESENTED WITH MODERATE DYSARTHRIA. EVALUATION: Pt ALERT AND ORIENTED TO PERSON HOWEVER WITH NO RESPONSE TO PLACE, TIME AND SITUATION. Pt COMPLETED BASIC RECEPTIVE LANGUAGE TASKS WITH NO DIFFICULTY. Pt FOLLOWED BASIC COMMANDS, ANSWERED BASIC YES/NO AND WH QUESTIONS WITH MIN ASSISTANCE. Pts EXPRESSIVE LANGUAGE SKILLS WERE WITHIN MILD DEFICITS EVIDENCED BY DELAYED RESPONSES AND AT TIMES REQUIRING REPETITION OF TASKS. Pt DEMONSTRATED DIFFICULTY COMPLETING THE FOLLOWING TASKS: AUTOMATIC SPEECH; NAMING OBJECTS AND BODY PARTS; AND VERBALIZING AT CONVERSATIONAL LEVEL. Pt ALSO DEMONSTRATED DIFFICULTY EXPRESSING CLEAR MESSAGE OF WANTS AND NEEDS TO FAMILY AND CLINICIAN. Pt PRESENTED WITH MODERATE COGNITIVE LINGUISTIC DEFICITS. Pt DEMONSTRATED DIFFICULTY RESPONDING TO BASIC ORIENTATION QUESTIONS, COMPLETING IMMEDIATE/SHORT MEMORY TASKS, AND ORGANIZING IDEAS DURING SEQUENCING TASKS. Pt'S INTELLIGIBILITY WAS NEGATIVELY IMPACTED SECONDARY TO LEFT SIDED FACIAL DROOP. SPEECH THERAPY WARRANTED AT THIS TIME DURING LENGTH OF STAY. PROPERTY PRESERVATION SPECIALIST REVIEWED RESULTS AND RECOMMENDATIONS WITH PATIENT AND NURSE PAGE. RECOMMENDATIONS: 1. SKILLED SPEECH THERAPY 1-3X WEEK DURING LENGTH OF STAY TO ADDRESS LANGUAGE, COGNITIVE LINGUISTIC AND MOTOR SPEECH SKILLS. LTG1: Pt WILL INCREASE EXPRESSIVE LANGUAGE SKILLS TO EXPRESS WANTS AND NEEDS WITH MIN ASSISTANCE. LTG2: Pt WILL INCREASE COGNITIVE LINGUISTIC SKILLS TO FUNCTION EFFECTIVELY WITHIN ADLs. LTG3: Pt WILL INCREASE SPEECH INTELLIGIBILITY TO GREATER THAN 90% AT THE CONVERSATIONAL LEVEL GIVEN MIN A TO ENHANCE PtS ABILITY TO EXPRESS BASIC WANTS AND NEEDS. STG1: Pt WILL COMPLETE ORIENT X4 WITH 90% ACC AND MIN A. STG2: Pt WILL RECALL IMMEDIATE INFORMATION WITH 90% ACC AND MIN A. STG3: Pt WILL COMPLETE AUTOMATIC SPEECH TASKS WITH 90% ACC AND MIN A. STG4: Pt WILL FOLLOW 2 STEP COMMANDS WITH 90% ACC GIVEN MIN A. STG5: Pt WILL USE COMPENSATORY STRATEGIES (OVER ARTICULATION, SLOW RATE, INCREASED LOUDNESS) TO IMPROVE SPEECH INTELLIGIBILITY AT SENTENCE LEVEL WITH MIN CUES. STG6: SKILLED EDUCATION Pt/FAMILY/STAFF. Addendum: 09/22/24 at 1602 by CHERI SELINA, ST ST Amended: Links added.
--- NOTE | 2024-09-22 14:08 | HMCIMG ---
EXAM: MR Brain with and without Intravenous Contrast. CLINICAL HISTORY: hx stroke like symptoms TECHNIQUE: Multisequence, multiplanar magnetic resonance images acquired of the brain with and without intravenous contrast. COMPARISON: CT images from earlier today FINDINGS: BRAIN: Multifocal areas of diffusion restriction with corresponding low ADC values in the right fronto-parietal and temporal lobes. No intracranial mass or hemorrhage. No midline shift or extra-axial fluid collection. No cerebellar tonsillar ectopia. No abnormal enhancement. Mild luminal narrowing of the M1 and M2 segments of the right middle cerebral artery. VENTRICLES: No hydrocephalus. ORBITS: The orbits are normal. SINUSES AND MASTOIDS: The sinuses and mastoid air cells are clear. BONES: No acute fracture or aggressively appearing osseous lesion. IMPRESSION: 1. Acute non-hemorrhagic infarcts in the right fronto-parietal and temporal lobes with mild stenosis of the right M1 and M2 segments of middle cerebral artery. /[place]
--- NOTE | 2024-09-22 14:29 | NUR ---
DR CANDELARIA MADE AWARE OF MRI BRAIN REPORT
[2024-09-22] MEDS: 0.9%NACL 1000ML 1,000 ML IV SCH (14:37)
--- NOTE | 2024-09-22 14:49 | NUR ---
DR JIMENEZ AT BEDSIDE, SHOWED HIM REPORT OF MRI OF BRAIN ANS HE ORDERED 325MG OF ASPIRIN ONCE
--- NOTE | 2024-09-22 14:52 | NUR ---
DCP: HOME Pt currently lives with his girlfriend Antonette Robb [phone]. Pt does not have any DME, home health, or provider services. Pt girlfriend states that he can complete ADLs prior to coming into the hospital. Pt does not have a PCP at this time however girlfriend is trying to convince him to register at [facility] for medical care. At [place] pt will go home and family can assist with transportation. Addendum: 09/22/24 at 1455 by ANDREW DESIR SS Amended: Links added.
[2024-09-22] MEDS: ASPIRIN 325MG TAB PO ONE (15:02)
[2024-09-22 15:03] LABS: COVID19 (SARS ANTIGEN RAPID) PRESUMPTIVE NEGATIVE (NEGATIVE)
[2024-09-22 15:08] LABS: INFLUENZA TYPE A Negative For Type A (NEGATIVE); INFLUENZA TYPE B Negative For Type B (NEGATIVE)
--- NOTE | 2024-09-22 15:39 | HMCIMG ---
EXAM: US Duplex Bilateral Carotid and Vertebral Arteries. CLINICAL HISTORY: Slurred speech, dysarthria, r/o stroke TECHNIQUE: Real-time ultrasound scan of the bilateral carotid and vertebral arteries, 2-D alcaraz scale, with color Doppler flow and spectral waveform analysis. COMPARISON: None provided. FINDINGS: RIGHT COMMON CAROTID ARTERY: 37 cm/s RIGHT INTERNAL CAROTID ARTERY: 103 cm/s RIGHT EXTERNAL CAROTID ARTERY: 69 cm/s RIGHT VERTEBRAL ARTERY: Antegrade flow at 53 cm/s. RIGHT ICA/CCA RATIO: 2.8. LEFT COMMON CAROTID ARTERY: 64 cm/s LEFT INTERNAL CAROTID ARTERY: 96 cm/s LEFT EXTERNAL CAROTID ARTERY: 88 cm/s LEFT VERTEBRAL ARTERY: Antegrade flow at 43 cm/s. LEFT ICA/CCA RATIO: 1.5 SOFT TISSUES: No incidental abnormalities. IMPRESSION: Increased right ICA/CCA ratio suggest a significant stenosis. Recommend CT angiography of the neck for further evaluation. /[place]
[2024-09-22] MEDS: ASPIRIN 300 MG SUPPOSITORY PR ONE (15:48)
--- NOTE | 2024-09-22 15:51 | EKG ---
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
[2024-09-22] MEDS ORDERED: IOHEXOL 350 MG/ML 100ML INFUS..BTL IV ONE (16:07)
--- NOTE | 2024-09-22 16:09 | NUR ---
DR CANDELARIA MADE AWARE OF CAROTID US RESULT PATIENT RESTING IN BED, CALL LIGHT IN REACH
[2024-09-22] MEDS ORDERED: GADOTERATE MEGLUMINE 10 MMOL/20 ML VIAL IV ONE (16:51)
--- NOTE | 2024-09-22 17:00 | HMCIMG ---
EXAM: CTA Head and Neck with and without Intravenous Contrast. CLINICAL HISTORY: TIA VS STROKE TECHNIQUE: Axial CTA images of the head and neck performed with and without intravenous contrast in the arterial phase. Coronal and sagittal reformatted images were generated and reviewed. 3-D reformatted images generated on an independent workstation were also reviewed. NASCET criteria were used in assessment of stenosis. CONTRAST: Contrast injected without incident. COMPARISON: None provided. FINDINGS: VASCULATURE:NECK: COMMON CAROTID ARTERIES No significant stenosis. No dissection or occlusion. EXTERNAL CAROTID ARTERIES Patent. INTERNAL CAROTID ARTERIES No stenosis by NASCET criteria. No dissection or occlusion. VERTEBRAL ARTERIES No significant stenosis. No dissection or occlusion. HEAD: ANTERIOR CEREBRAL ARTERIES No significant stenosis. No occlusion. No aneurysm. MIDDLE CEREBRAL ARTERIES No significant stenosis. No occlusion. No aneurysm. POSTERIOR CEREBRAL ARTERIES No significant stenosis. No occlusion. No aneurysm. BASILAR ARTERY No significant stenosis. No occlusion. No aneurysm. OTHER: SOFT TISSUES No acute finding. BONES No acute osseous abnormality. IMPRESSION: Unremarkable CTA of the head and neck. /Alexis
[2024-09-22] MEDS ORDERED: LACTULOSE 20 GM/30 ML UDCUP PO PRN (19:30)
[2024-09-22] MEDS ORDERED: MAGNESIUM 2GM PREMIX 50ML 50 ML IV PRN (19:30)
--- NOTE | 2024-09-22 20:11 | NUR ---
PATIENT IS NOT TAKING ANY HOME MEDS
[2024-09-22] MEDS: FAMOTIDINE 20MG VIAL IV SCH (20:43)
--- NOTE | 2024-09-22 21:43 | NUR ---
NIH SCORE OF 7: LEFT ARM- NO EFFORT AGAINST GRAVITY, 4 FACIAL- PARTIAL PARALYSIS, 2 DYSARTHRIA 1- MILD TO MOD, 1
[2024-09-22 22:30] VITALS: BP 131/94; PULSE 59; RESP 20; TEMP 98
[2024-09-23] VITALS (33 sets, daily range): BP systolic 126–151; BP diastolic 73–101; PULSE 60–92; RESP 10–24; TEMP 97.8–98.4; O2SAT 96–100
--- NOTE | 2024-09-23 00:55 | NUR ---
BED ALARM HEARD ACTIVATED IN PATIENT'S ROOM AND A THUMP ON THE GROUND HEARD WITHIN THE ROOM. UPON OPENING DOOR INTO PATIENT'S ROOM, PATIENT NOTED STANDING AT BEDSIDE WITH PILLOW AND BED SHEETS ON FLOOR. SPOUSE NOTED LAYING IN RECLINER AT BEDSIDE WITH EYES CLOSED. WHEN SHE HEARD MY VOICE SHE WOKE UP AND ASKED IF PATIENT HAD FALLEN TO WHICH THE PATIENT HAD VOICED HE HAD. WHEN ASKED WHY HE HAD GOTTEN UP HE RESPONDED THAT HE WAS HUNGRY BY GESTURING HIS OPEN PALM TOWARDS HIS MOUTH. WE BOTH ADVISED HIM THAT HE IS UNABLE TO EAT DUE TO FAILING BEDSIDE SWALLOW STUDY MULTIPLE TIMES IN THE EMERGENCY DEPARTMENT. PATIENT ASSISTED BACK INTO BED BY SPOUSE AND NURSE. PATIENT WAS ADVISED THAT HE MUST STAY BEDREST UNTIL CLEARED BY MD. PATIENT WAS HELPED INTO A COMFORTABLE POSITION IN BED. BED ALARM SENSITIVITY INCREASED. PATIENT DENIED ANY INJURY OR PAIN AT THIS TIME. ODALYS HENDRIX FROM [facility] CONTACTED ON UNWITNESSED FALL AND CURRENT ADMISSION STATUS. PER ODALYS STEINER MANAGEMENT TRAINEE MARKETING MONITOR FOR COMPLAINTS OF PAIN AND CALL BACK FOR FURTHER ORDERS IF PAIN VOICED. CONTACTED MATT COHEN RN CHARGE NURSE TO ADVISE OF PATIENT'S UNWITNESSED FALL. ALARM TECHNICIAN WAS ADVISED BY CHARGE NURSE. PATIENT AND SPOUSE ADVISED OF USING CALL LIGHT FOR NURSING STAFF TO HELP PATIENT OUT OF BED. SPOUSE VERBALIZED UNDERSTANDING AND PATIENT NODDED UNDERSTANDING. HEAD OF BED ELEVATED, SIDE RAILS UP X2, BED IN LOWEST SETTING. BED ALARM ON MODERATE SENSITIVITY, CALL LIGHT WITHIN REACH. ROOM DOOR LEFT OPEN FOR DIRECT VISUAL OF PATIENT.
[2024-09-23 04:46] LABS: NUCLEATED RED BLOOD CELLS 0.0 % (0.0-0.19); PLATELET COUNT (AUTO) 225.0 K/uL (130-400); RED BLOOD CELL COUNT(AUTO) 5.2 MIL/uL (4.50-6.20); RED CELL DISTRIBUTION WIDTH 13.0 % (11.0-15.5); WHITE BLOOD COUNT (AUTO) 10.3 K/uL (4.8-10.8)
[2024-09-23 04:54] LABS: CREATININE 1.1 mg/dL (0.5-1.3); GLOMERULAR FILTR. RATE CALC 86.0 mL/min (>90); GLUCOSE,RANDOM 83.0 mg/dL (70-105); SODIUM SERUM 137.0 mmol/L (136-145); UREA NITROGEN, BLOOD 8.0 mg/dL (7-18)
--- NOTE | 2024-09-23 08:00 | CONS ---
CONSULTATION NOTE Date of Service: Sep 23, 2024 Reason for Consultation: eval of left sided weakness Requesting Physician: Dr Christianson HISTORY OF PRESENT ILLNESS: Mr. 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 The patient reports experiencing problems with his left hand for the past two weeks, including numbness and weakness. This weakness has progressed to involve his entire left side. He has also been experiencing headaches described as "like migraines." Yesterday, the patient developed difficulty speaking and began feeling tingling on the right side. His left arm is reported to be painful. The patient's family members noticed a change in his behavior. When they found him, he was standing up but not focusing, with his entire left side swollen and weak. He is unable to squeeze his arms. The patient has a history of crack cocaine use but has reportedly been clean for five years. However, a recent test was positive for cocaine. The patient also has a history of stomach ulcers. The patient's symptoms have significantly impacted his functioning, as evidenced by his inability to speak or focus properly. The onset of speech difficulties yesterday suggests a progression of his condition. Medical History - Left-sided weakness and numbness for 2 weeks - Migraine-like headaches - Stomach ulcers - History of leukemia in younger years - History of crack cocaine use, clean for 5 years Medications and Supplements - Aspirin 81 mg by mouth daily - Atorvastatin 40 mg by mouth daily Social History - Substance Use: History of crack cocaine use, 5 years clean; recent positive cocaine test - Living Situation: Lives with others described as "druggies" REVIEW OF SYSTEMS General: Positive for weakness. HEENT: Positive for headaches. Gastrointestinal: Positive for stomach ulcers. Musculoskeletal: Positive for left arm pain. Neurological: Positive for left-sided weakness, numbness in left hand, and tingling on the right side. PAST MEDICAL HISTORY: as above PAST SURGICAL HISTORY: none PAST SOCIAL HISTORY: none FAMILY HISTORY: none Coded Allergies: No Known Drug Allergies (Unverified Allergy, Unknown, 12/19/21) PHYSICAL EXAM Mental status: The patient is alert, attentive, and oriented. Speech severe aphasia Cranial nerves: CN II: Visual knapp are full to confrontation. CN III, IV, : At primary gaze, there is no eye deviation. CN V: Facial sensation is intact to pinprick in all 3 divisions bilaterally. Corneal responses are intact. CN VII: Face is symmetric with normal eye closure and smile. CN VIII: Hearing is normal to rubbing fingers CN IX, X: Palate elevates symmetrically. Phonation is normal. CN XI: Head turning and shoulder shrug are intact CN XII: Tongue is midline with normal movements and no atrophy. Motor: Patient has severe left upper or lower extremities hemiplegia Reflexes: Reflexes are 2+ and symmetric at the biceps, triceps, knees, and ankles. Plantar responses are flexor. Sensory: Light touch, pinprick, position sense, and vibration sense are intact in fingers and toes. Coordination: Rapid alternating movements and fine finger movements are intact. There is no dysmetria on [id number] and [id number]. There are no abnormal or extraneous movements. Romberg is absent. Gait/Stance: Not evaluated NHSS: 14 Vital Sign (Last 24 Hours) 09/22/24 09/23/24 22:15 04:00 Temp 98.1 Pulse 69 Resp 20 B/P (MAP) 138/76 Pulse Ox 97 O2 Delivery Room Air O2 Flow Rate 0 FiO2 21 Intake & Output (last 24hrs) 09/22/24 09/22/24 09/23/24 15:00 23:00 07:00 Output Total 700 ml Balance -700 ml LABS: Laboratory: Test 09/23/24 05:44 09/23/24 04:38 09/22/24 14:35 09/22/24 12:02 Range/Units Whole Blood Glucose 95 70-110 MG/DL White Blood Count 10.3 4.8-10.8 K/uL Red Blood Count 5.20 4.50-6.20 MIL/uL Hemoglobin 16.2 14.0-18.0 g/dL Hematocrit 45.2 42-54 % Mean Corpuscular Volume 86.9 79-99 fL Mean Corpuscular Hemoglobin 31.2 27.0-33.0 pg Mean Corpuscular Hemoglobin Concent 35.8 32.0-36.0 g/dL Red Cell Distribution Width 13.0 11.0-15.5 % Platelet Count 225 130-400 K/uL Mean Platelet Volume 10.1 7.5-10.5 fL Nucleated Red Blood Cells 0.0 0.0-0.19 % Sodium Level 137 136-145 mmol/L Potassium Level 3.4 L 3.5-5.1 mmol/L Chloride Level 101 101-111 mmol/L Carbon Dioxide Level 31 21-32 mmol/L Blood Urea Nitrogen 8 7-18 mg/dL Creatinine 1.1 0.5-1.3 mg/dL Glomerular Filtration Rate Calc 86 >90 mL/min Random Glucose 83 70-105 mg/dL Total Calcium 8.8 8.5-10.1 mg/dL Influenza Type A Antigen Negative For Type A NEGATIVE Influenza Type B Antigen Negative For Type B NEGATIVE SARS-CoV-2 Antigen (Rapid) PRESUMPTIVE NEGATIVE NEGATIVE Urine Color YELLOW YELLOW Urine Appearance CLEAR CLEAR Urine pH 6.0 5.0-8.0 Urine Specific [place] 1.026 1.001-1.031 Urine Protein 20 H NEGATIVE mg/dL Urine Glucose (UA) NEGATIVE NEGATIVE mg/dL Urine Ketones NEGATIVE NEGATIVE mg/dL Urine Occult Blood NEGATIVE NEGATIVE Urine Nitrate NEGATIVE NEGATIVE Urine Bilirubin NEGATIVE NEGATIVE mg/dL Urine Urobilinogen 0.2 0.2-1.0 mg/dL Urine Leukocyte Esterase NEGATIVE NEGATIVE Kassie/uL Urine RBC 2-5 H 0-1 /HPF Urine WBC 2-5 H 0-1 /HPF Urine Bacteria None Seen None Seen /HPF Urine Opiates Screen POSITIVE H NEGATIVE Urine Barbiturates Screen NEGATIVE NEGATIVE Urine Phencyclidine Screen NEGATIVE NEGATIVE Urine Amphetamines Screen NEGATIVE NEGATIVE Urine Benzodiazepines Screen NEGATIVE NEGATIVE Urine Cocaine Screen POSITIVE H NEGATIVE Urine Marijuana (THC) Screen NEGATIVE NEGATIVE Test 09/22/24 08:55 09/22/24 08:33 Range/Units Immature Granulocyte % (Auto) 0.6 0-1 % Neutrophils (%) (Auto) 55.9 40.0-77.0 % Lymphocytes (%) (Auto) 31.3 21.0-51.0 % Monocytes (%) (Auto) 7.5 3.0-13.0 % Eosinophils (%) (Auto) 4.4 0.0-8.0 % Basophils (%) (Auto) 0.3 0.0-5.0 % Neutrophils # (Auto) 5.0 1.8-7.7 K/uL Lymphocytes # (Auto) 2.8 1.0-4.8 K/uL Monocytes # (Auto) 0.7 0.1-1.0 K/uL Eosinophils # (Auto) 0.40 0.00-0.70 K/uL Basophils # (Auto) 0.03 0.00-0.20 K/uL Absolute Immature Granulocyte (auto 0.05 0-1 K/uL Erythrocyte Sedimentation Rate 7 0-15 MM/HR Prothrombin Time 9.8 9.6-11.6 SEC Prothromb Time International Ratio <= 0.93 0.85-1.15 Activated Partial Thromboplast Time 26.4 26.3-35.5 SEC Total Creatine Kinase 75 21-232 U/L Troponin I High Sensitivity < 4 L 4-75 ng/L C-Reactive Protein, Quantitative 2.20 0.5-3.0 mg/L LDL Cholesterol 121 H 0-99 mg/dL Thyroid Stimulating Hormone (TSH) 4.86 H 0.36-3.74 uIU/mL Bedside Glucose Comment Notified Nurse DIAGNOSTICS / RADIOLOGY: MRI of the brain without contrast acute ischemic stroke involving the right MCA CTA head and neck: M1 occlusion. (IN MY INTERPRETATION OF THE IMAGES) ASSESSMENT / PLAN: Acute Embolic Ischemic Stroke Assessment: Patient has experienced multiple strokes over the past 2 weeks, with the most recent event occurring yesterday, resulting in left-sided weakness, numbness, and speech difficulties. The stroke is likely due to a clot in the right hemisphere of the brain. Contributing factors may include recent cocaine use, as evidenced by a positive toxicology screen. The delayed presentation (symptoms starting 2 weeks ago) limits acute intervention options. Plan: - Allow permissible hypertension with blood pressure between 140 to 200 mmHg - Order transesophageal echocardiogram (VAHID) - Order hemoglobin A1c - Follow physical therapy, occupational therapy, and speech therapy recommendations - Continue aspirin 81 mg PO daily - Continue atorvastatin 40 mg PO daily - Order hypercalibur panel Substance Use Disorder Assessment: Patient has a history of crack cocaine use but reported being clean for 5 years. However, recent toxicology screen was positive for cocaine, suggesting relapse or environmental exposure. This substance use may have contributed to the patient's recent strokes. Plan: - Address positive cocaine toxicology screen - Consider referral to substance abuse treatment program (not explicitly mentioned in transcript) Gastric Ulcers Assessment: Patient has a history of gastric ulcers. No current symptoms or treatment discussed. History of Leukemia Assessment: Patient has a history of leukemia from a younger age. Current status and any ongoing treatment not discussed. Thank you for your consultation. I will be off service starting tomorrow. If further neurological assistance is needed the patient can be transferred to [facility] PRAKASH Adams MD Sep 23, 2024 08:00
[2024-09-23] MEDS ORDERED: ENOXAPARIN SODIUM 30 MG/0.3 ML SQ SCH (09:00)
[2024-09-23] MEDS ORDERED: amLODIPine 2.5 MG TAB PO SCH (09:00)
[2024-09-23] MEDS: ASPIRIN 81MG CHEW TAB PO SCH (09:01)
--- NOTE | 2024-09-23 11:57 | HMCSR ---
APPROVED REPORT EXAM: Two-dimensional and M-mode echocardiogram with Doppler and color Doppler. INDICATION ICD: TIA vs Stroke 2D Dimensions RVDd3.7 cmLVEF(%)61.8 (>50%)LVED Vol(simp.)89.0 mL IVSd0.9 (0.7-1.1cm)FS(%)33 %LVES Vol(simp.)50.0 mL LVDd3.7 (3.8-5.6cm)LA (2D)3.0 (1.6-4.0cm)LVEF(%, simp.)45 % PWd1.0 (0.7-1.1cm)Ao Root(2D)2.9 (2.0-3.7cm)LA ESV INDEX (BP)14.05 mL/m2 LVDs2.5 (2.5-4.0cm)LVOT diam1.9 (1.8-2.4cm) Deformation Strain Apical 4-13.2 % Apical 2-12.9 % Apical 3-8.5 % Global Strain-11.5 % M-Mode Dimensions EPSS0.8 cm LA (MM)2.5 (1.6-4.0cm) Ao Root(MM)3.4 (2.0-3.7cm) Aortic Valve AoV Vmax1.0 m/Amari Peak GR3.7 mmHgLVOT Vmax0.9 m/s AoV VTI0.2 mAo Mean GR2.1 mmHgLVOT VTI0.18 m MARIAMA (VMAX)2.61 cm2AVA (VTI) 2.6 cm2 Mitral Valve MV E Vmax73.7 cm/sDECEL Tmqt121 ms MV A Vmax43.0 cm/sP 1/2 T59 ms E/A ratio1.7MVA (PHT)3.7 cm2 TDI E/E' Ikytpp62.1E/E' Lateral8.5 Medial E' Peak V6.62 cm/sLateral E' Peak V8.66 cm/s Pulmonary Valve PV Vmax0.7 m/sPV VTI0.14 mPV Mean GR1.0 mmHg PV Peak GR2.0 mmHg Left Ventricle The left ventricle is normal size. There is normal LV segmental wall motion. There is normal left barb tricular wall thickness. LVEF is 55-60%. The left ventricular diastolic function is normal. Right Ventricle The right ventricle is normal size. The right ventricular systolic function is normal. Atria The left atrium size is normal. The right atrium size is normal. Aortic Valve The aortic valve is normal in structure. No aortic regurgitation is present. There is no aortic valvu lar stenosis. Mitral Valve The mitral valve is normal in structure. There is no mitral valve regurgitation noted. There is no mi tral valve stenosis. Tricuspid Valve The tricuspid valve is normal in structure. There is no tricuspid valve regurgitation noted. Pulmonic Valve The pulmonary valve is normal in structure. There is no pulmonic valvular regurgitation. Great Vessels The aortic root is normal in size. The IVC is normal in size and collapses >50% with inspiration. Pericardium There is no pericardial effusion. Conclusion There is normal LV segmental wall motion. LVEF is 55-60%. The aortic root is normal in size. There is no pericardial effusion.
--- NOTE | 2024-09-23 13:27 | HMCIMG ---
EXAM: CT Head Without IV contrast. CLINICAL HISTORY: WORSENING CLINICALLY, ct follow up recent stroke TECHNIQUE: Axial computed tomography images of the head/brain without intravenous contrast. COMPARISON: CT dated September 22, 2024 FINDINGS: Interval increased area of low-attenuation within the right frontal and parietal lobes now with overall dimensions of approximately 6.7 x 9.6 x 6.5 cm in craniocaudal, AP, and transverse dimensions respectively. There is no hemorrhagic transformation appreciated. There is edema resulting in mild mass effect upon the right lateral ventricle. There is no significant midline shift. Ventricles remain normal in caliber. Basal cisterns remain patent. Orbits and globes remain within normal limits. Paranasal sinuses and mastoid air cells are clear. The calvarium remains intact. IMPRESSION: 1. Interval enlargement of right frontotemporoparietal infarct now measuring 6.7 x 9.6 x 6.5 cm with mild mass effect on right lateral ventricle, without hemorrhagic transformation. /[place]
--- NOTE | 2024-09-23 13:46 | PN ---
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 He described the onset as abrupt, without any preceding trauma or provoking factor. The patient reported that he had been experiencing weakness in his left arm for the past two weeks but had dismissed it as fatigue from working night shifts. He described a general sense of tiredness and poor sleep, which he and his have attributed to his demanding schedule and night shifts. He denied any involvement of the lower extremities, and there were no associated symptoms such as vision changes, chest pain, shortness of breath, or loss of consciousness. Denied any prior history of similar symptoms, myocardial infarction, stroke, or previous hospitalizations. At the time of presentation, the patient was afebrile with a blood pressure of 155/105 mmHg; other vital signs were unremarkable. Laboratory results revealed an unremarkable CBC, potassium of 3.3, negative troponin, and other electrolytes within normal limits. LDL cholesterol was 121, and TSH was mildly elevated at 4.86. Urine toxicology was positive for opiates and cocaine. The patient was evaluated in ED Room 13 with his sister present at the bedside. Vital signs at the time of assessment included a blood pressure of 147/96 mmHg, pulse rate of 69 bpm, and he was breathing comfortably on room air. The patient was noted to have obvious left-sided facial droop, with disorganized and [id number] speech. He also reports a headache. Estimated NIHSS score is 11 indicates moderate stroke severity. A non-contrast CT head showed no evidence of acute intracranial pathology. However, brain MRI revealed an acu te non-hemorrhagic infarct involving the right frontoparietal and temporal lobes, along with mild stenosis of the right M1 and M2 segments of the middle cerebral artery. The patient received a 300 mg aspirin suppository at this time neurology consultation was requested. 09/23/2024- He was evaluated this morning. He is AAO x3. He has left facial droop and difficulty with the speech. He is unable to move his left hand. His vitals are stable. Pertinent labs potassium 3.4, creatinine 1.1, TSH 4.8. CTA head/neck was unremarkable. Started on mg and atorvastatin 40 mg. Neurology on board. Daily Physical therapy. Plan as discussed below. Patient mental status worse today, with increased weakness in his left upper extremity. Repeat CT head/brain without contrast ordered, showing worsening interval enlargement of right frontotemporoparietal infarct now measuring 6.7 x 9.6 x 6.5 cm with mild mass effect on right lateral ventricle, without hemorrhagic transformation. Midline shift present. Patient will be transferred to ICU, with neuro checks ever hour. maintenance and custodian supervisor called for transfer to higher level care in [facility]. REVIEW OF SYSTEMS CONSTITUTIONAL: Denies fevers, chills, or night sweats. No unintentional weight loss reported. NEUROLOGICAL: The patient admits frontal and parietal headaches, reports motor weakness involving the left side of the face, as well as weakness in the left upper extremity. no amaurosis fugax, sensory deficit, vertigo/spinning sensation, gait abnormalities, or tremors. ENT: No hearing loss, otalgia, otorrhea, rhinitis, rhinorrhea, hoarseness, or sore throat. CARDIOVASCULAR: Denies any exertional angina, dyspnea on exertion, orthopnea, paroxysmal nocturnal dyspnea, palpitations, life-threatening arrhythmias, claudication. PULMONARY: Denies any shortness of breath, cough, phlegm/sputum, hemoptysis, pleuritic chest pain. SLEEP: Admits morning headaches, Denies difficulty falling asleep, staying asleep, waking from sleep. Admits knowledge of snoring. GASTROINTESTINAL: Denies any type of dysphagia to either liquids or solids. Denies nausea, vomiting, pyrosis, early satiety, abdominal pain, diarrhea, constipation, or changes in stool consistency or caliber. Denies coffee-ground emesis, hematemesis, hematochezia, or melanotic stools. GENITOURINARY: Denies frequency, urgency, nocturia, hematuria or incontinence (Storage/Irritative symptoms.) Low urinary stream, straining to void, urinary intermittency or hesitancy, splitting of the voiding stream, terminal dribbling. ENDOCRINOLOGIC: Denies polyuria, polydipsia, polyphagia or heat/cold intolerances. HEMATOLOGIC: Denies thrombophilia/previous clots, or coagulopathy/bleeding disorders. ONCOLOGIC: Denies personal history of malignancy. DERMATOLOGIC: Denies rashes or pruritus. PSYCHIATRIC: Denies any suicidal or homicidal ideation. Denies hallucinations. PHYSICAL EXAM GENERAL APPEARANCE: The patient is awake, alert, and oriented, in no acute cardiopulmonary distress. NEUROLOGICAL: Mental Status: Alert and oriented 3, speech disorganized and difficult to understand Cranial Nerves: CN VII: Left-sided facial weakness involving lower face; Examination of other cranial nerves was limited due to patient discomfort. Motor: Power of left upper extremity 0/5, power of left lower extremity 4/5 Power of right upper extremity 5/5, power of right lower extremity 5/5 Sensory: Decreased sensation noted on the left upper extremity HEENT: Pupils are equal and reactive. Extraocular movements are intact. NECK: Supple. No JVD. No thyromegaly. No submental, submandibular, pre-/postauricular, occipital or supraclavicular lymphadenopathy. CHEST: Normal chest expansion. No Telemetry. LUNGS: Absence of any rales, rhonchi or any wheezing. CARDIOVASCULAR: Regular. S1 and S2 normal. No appreciable rubs, murmurs or gallops. ABDOMEN: Soft, nontender, and nondistended. There is no rebound, voluntary guarding, or rigidity. : Deferred. No Hubbard. EXTREMITIES: Non-edematous and not cyanotic. No clubbing. Good capillary refill. SKIN: No skin breakdown. Vital Signs (last 8hr) Date Time Temp Pulse Resp B/P (MAP) Pulse Ox O2 Delivery O2 Flow Rate FiO2 09/23/24 11:52 98.4 64 18 143/90 98 Room Air 09/23/24 08:00 97.9 61 18 137/93 100 Room Air 09/23/24 08:00 100 Room Air* 0 21 LABS: Laboratory: Test 09/23/24 11:20 09/23/24 04:38 09/22/24 14:35 09/22/24 12:02 Range/Units Whole Blood Glucose 84 70-110 MG/DL White Blood Count 10.3 4.8-10.8 K/uL Red Blood Count 5.20 4.50-6.20 MIL/uL Hemoglobin 16.2 14.0-18.0 g/dL Hematocrit 45.2 42-54 % Mean Corpuscular Volume 86.9 79-99 fL Mean Corpuscular Hemoglobin 31.2 27.0-33.0 pg Mean Corpuscular Hemoglobin Concent 35.8 32.0-36.0 g/dL Red Cell Distribution Width 13.0 11.0-15.5 % Platelet Count 225 130-400 K/uL Mean Platelet Volume 10.1 7.5-10.5 fL Nucleated Red Blood Cells 0.0 0.0-0.19 % Sodium Level 137 136-145 mmol/L Potassium Level 3.4 L 3.5-5.1 mmol/L Chloride Level 101 101-111 mmol/L Carbon Dioxide Level 31 21-32 mmol/L Blood Urea Nitrogen 8 7-18 mg/dL Creatinine 1.1 0.5-1.3 mg/dL Glomerular Filtration Rate Calc 86 >90 mL/min Random Glucose 83 70-105 mg/dL Hemoglobin A1c 5.0 4.0-6.0 % Estimated Average Glucose (eAG) 97 70-126 mg/dL Total Calcium 8.8 8.5-10.1 mg/dL Influenza Type A Antigen Negative For Type A NEGATIVE Influenza Type B Antigen Negative For Type B NEGATIVE SARS-CoV-2 Antigen (Rapid) PRESUMPTIVE NEGATIVE NEGATIVE Urine Color YELLOW YELLOW Urine Appearance CLEAR CLEAR Urine pH 6.0 5.0-8.0 Urine Specific [place] 1.026 1.001-1.031 Urine Protein 20 H NEGATIVE mg/dL Urine Glucose (UA) NEGATIVE NEGATIVE mg/dL Urine Ketones NEGATIVE NEGATIVE mg/dL Urine Occult Blood NEGATIVE NEGATIVE Urine Nitrate NEGATIVE NEGATIVE Urine Bilirubin NEGATIVE NEGATIVE mg/dL Urine Urobilinogen 0.2 0.2-1.0 mg/dL Urine Leukocyte Esterase NEGATIVE NEGATIVE Kassie/uL Urine RBC 2-5 H 0-1 /HPF Urine WBC 2-5 H 0-1 /HPF Urine Bacteria None Seen None Seen /HPF Urine Opiates Screen POSITIVE H NEGATIVE Urine Barbiturates Screen NEGATIVE NEGATIVE Urine Phencyclidine Screen NEGATIVE NEGATIVE Urine Amphetamines Screen NEGATIVE NEGATIVE Urine Benzodiazepines Screen NEGATIVE NEGATIVE Urine Cocaine Screen POSITIVE H NEGATIVE Urine Marijuana (THC) Screen NEGATIVE NEGATIVE Test 09/22/24 08:55 09/22/24 08:33 Range/Units Immature Granulocyte % (Auto) 0.6 0-1 % Neutrophils (%) (Auto) 55.9 40.0-77.0 % Lymphocytes (%) (Auto) 31.3 21.0-51.0 % Monocytes (%) (Auto) 7.5 3.0-13.0 % Eosinophils (%) (Auto) 4.4 0.0-8.0 % Basophils (%) (Auto) 0.3 0.0-5.0 % Neutrophils # (Auto) 5.0 1.8-7.7 K/uL Lymphocytes # (Auto) 2.8 1.0-4.8 K/uL Monocytes # (Auto) 0.7 0.1-1.0 K/uL Eosinophils # (Auto) 0.40 0.00-0.70 K/uL Basophils # (Auto) 0.03 0.00-0.20 K/uL Absolute Immature Granulocyte (auto 0.05 0-1 K/uL Erythrocyte Sedimentation Rate 7 0-15 MM/HR Prothrombin Time 9.8 9.6-11.6 SEC Prothromb Time International Ratio <= 0.93 0.85-1.15 Activated Partial Thromboplast Time 26.4 26.3-35.5 SEC Total Creatine Kinase 75 21-232 U/L Troponin I High Sensitivity < 4 L 4-75 ng/L C-Reactive Protein, Quantitative 2.20 0.5-3.0 mg/L LDL Cholesterol 121 H 0-99 mg/dL Thyroid Stimulating Hormone (TSH) 4.86 H 0.36-3.74 uIU/mL Bedside Glucose Comment Notified Nurse Current Medications Medications (Trade) Dose Ordered Sig/Shayne Route PRN Reason Start Time Stop Time Status Last Admin Dose Admin Acetaminophen (TYLenol 325MG TAB) 650 mg Q4H PRN PO MILD PAIN (1-3) 09/22/24 12:30 09/22/24 12:31 DC Acetaminophen (TYLenol 325MG TAB) 650 mg Q6H PRN PO TEMPERATURE GREATER THAN 101.5 09/22/24 12:30 09/22/24 12:31 DC Amlodipine Besylate (NorvASC 2.5MG TAB) 2.5 mg DAILY PO 09/23/24 09:00 09/22/24 13:23 DC Aspirin (Aspirin 81mg Chew Tab) 81 mg DAILY PO 09/23/24 09:00 10/23/24 08:59 09/23/24 09:01 81 MG Atorvastatin Calcium (LIPItor 40MG) 40 mg HS PO 09/22/24 21:00 10/22/24 20:59 09/22/24 20:43 40 MG Enoxaparin Sodium (Lovenox) 30 mg DAILY SQ 09/23/24 09:00 09/22/24 19:28 DC Famotidine (Pepcid 20mg Vial) 20 mg BID IV 09/22/24 21:00 10/22/24 20:59 09/23/24 08:58 20 MG Heparin Sodium (Porcine) (HEParin 5,000 UNIT VIAL) 5,000 unit Q8H SQ 09/22/24 19:30 10/22/24 19:29 09/23/24 03:38 5,000 UNIT Lactulose (Constulose 20gm/ 30ml Udcup) 20 gm BID PRN PO CONSTIPATION 09/22/24 19:30 10/22/24 19:29 Magnesium Sulfate 50 ml @ 0 mls/hr PROTOCOL PRN IV As needed 09/22/24 19:30 10/22/24 19:29 Morphine Sulfate (morPHINE 2MG SYG) 1 mg Q6H PRN IVP MODERATE PAIN (4-6) 09/22/24 12:30 09/29/24 12:29 Morphine Sulfate (morPHINE 2MG SYG) 2 mg Q4H PRN IVP SEVERE PAIN (7-10) 09/22/24 12:30 09/22/24 19:49 DC Morphine Sulfate (morPHINE 2MG SYG) 2 mg Q8H PRN IVP SEVERE PAIN (7-10) 09/22/24 19:47 09/29/24 12:29 Ondansetron HCl (zoFRAN 4MG INJ) 4 mg Q6H PRN IV NAUSEA/VOMITING 09/22/24 12:30 10/22/24 12:29 Ondansetron HCl (zoFRAN 4MG INJ) 4 mg Q6H PRN IV NAUSEA/VOMITING 09/22/24 19:30 10/22/24 19:29 Potassium Chloride 100 ml @ 50 mls/hr AD PRN IV POTASSIUM PROTOCOL 09/22/24 12:30 10/22/24 12:29 09/23/24 05:03 50 MLS/HR Sodium Chloride 1,000 ml @ 75 mls/hr [id number] IV 09/22/24 12:30 10/22/24 12:29 09/23/24 02:13 75 MLS/HR DIAGNOSTICS / RADIOLOGY: PATIENT: SELINALELANDBUSHRA MR#: [id number] : 1980 SEX: M AGE: 44 LOCATION: [facility] ORDER 153 STATUS: ADM IN REPORT#: [id number] SERVICE [id number] REASON: TIA VS STROKE ORDERING PHYSICIAN: PRAKASH RUDD MD PROCEDURE: CTA [facility] - CT ANGIO HEAD AND NECK EXAM: CTA Head and Neck with and without Intravenous Contrast. CLINICAL HISTORY: TIA VS STROKE TECHNIQUE: Axial CTA images of the head and neck performed with and without intravenous contrast in the arterial phase. Coronal and sagittal reformatted images were generated and reviewed. 3-D reformatted images generated on an independent workstation were also reviewed. NASCET criteria were used in assessment of stenosis. CONTRAST: Contrast injected without incident. COMPARISON: None provided. FINDINGS: VASCULATURE:NECK: COMMON CAROTID ARTERIES No significant stenosis. No dissection or occlusion. EXTERNAL CAROTID ARTERIES Patent. INTERNAL CAROTID ARTERIES No stenosis by NASCET criteria. No dissection or occlusion. VERTEBRAL ARTERIES No significant stenosis. No dissection or occlusion. HEAD: ANTERIOR CEREBRAL ARTERIES No significant stenosis. No occlusion. No aneurysm. MIDDLE CEREBRAL ARTERIES No significant stenosis. No occlusion. No aneurysm. POSTERIOR CEREBRAL ARTERIES No significant stenosis. No occlusion. No aneurysm. BASILAR ARTERY No significant stenosis. No occlusion. No aneurysm. OTHER: SOFT TISSUES No acute finding. BONES No acute osseous abnormality. IMPRESSION: Unremarkable CTA of the head and neck. /[place] DICTATED BY: GISELA GRIFFITHS MD DATE: 09/22/241758 ELECTRONICALLY SIGNED BY: GISELA GRIFFITHS MD DATE: 09/22/241758 PATIENT: BUSHRA MARKS MR#: [id number] : 1980 SEX: M AGE: 44 LOCATION: [facility] ORDER 30 STATUS: ADM IN [facility] REPORT#: [id number] SERVICE [id number] REASON: TIA VS STROKE ORDERING PHYSICIAN: PRAKASH RUDD MD PROCEDURE: ECHO CMP - ECHO 2-D COMPLETE APPROVED REPORT EXAM: Two-dimensional and M-mode echocardiogram with Doppler and color Doppler. INDICATION ICD: TIA vs Stroke 2D Dimensions RVDd 3.7 cm LVEF(%) 61.8 (>50%) LVED Vol(simp.) 89.0 mL IVSd 0.9 (0.7-1.1cm) FS(%) 33 % LVES Vol(simp.) 50.0 mL LVDd 3.7 (3.8-5.6cm) LA (2D) 3.0 (1.6-4.0cm) LVEF(%, simp.) 45 % PWd 1.0 (0.7-1.1cm) Ao Root(2D) 2.9 (2.0-3.7cm) LA ESV INDEX (BP) 14.05 mL/m2 LVDs 2.5 (2.5-4.0cm) LVOT diam 1.9 (1.8-2.4cm) Deformation Strain Apical 4 -13.2 % Apical 2 -12.9 % Apical 3 -8.5 % Global Strain -11.5 % M-Mode Dimensions EPSS 0.8 cm LA (MM) 2.5 (1.6-4.0cm) Ao Root(MM) 3.4 (2.0-3.7cm) Aortic Valve AoV Vmax 1.0 m/s Ao Peak GR 3.7 mmHg LVOT Vmax 0.9 m/s AoV VTI 0.2 m Ao Mean GR 2.1 mmHg LVOT VTI 0.18 m MARIAMA (VMAX) 2.61 cm2 MARIAMA (VTI) 2.6 cm2 Mitral Valve MV E Vmax 73.7 cm/s DECEL Time 169 ms MV A Vmax 43.0 cm/s P 1/2 T 59 ms E/A ratio 1.7 MVA (PHT) 3.7 cm2 TDI E/E' Medial 11.1 E/E' Lateral 8.5 Medial E' Peak V 6.62 cm/s Lateral E' Peak V 8.66 cm/s Pulmonary Valve PV Vmax 0.7 m/s PV VTI 0.14 m PV Mean GR 1.0 mmHg PV Peak GR 2.0 mmHg Left Ventricle The left ventricle is normal size. There is normal LV segmental wall motion. There is normal left ventricular wall thickness. LVEF is 55-60%. The left ventricular diastolic function is normal. Right Ventricle The right ventricle is normal size. The right ventricular systolic function is normal. Atria The left atrium size is normal. The right atrium size is normal. Aortic Valve The aortic valve is normal in structure. No aortic regurgitation is present. There is no aortic valvular stenosis. Mitral Valve The mitral valve is normal in structure. There is no mitral valve regurgitation noted. There is no mitral valve stenosis. Tricuspid Valve The tricuspid valve is normal in structure. There is no tricuspid valve regurgitation noted. Pulmonic Valve The pulmonary valve is normal in structure. There is no pulmonic valvular regurgitation. Great Vessels The aortic root is normal in size. The IVC is normal in size and collapses >50% with inspiration. Pericardium There is no pericardial effusion. Conclusion There is normal LV segmental wall motion. LVEF is 55-60%. The aortic root is normal in size. There is no pericardial effusion. DICTATED BY: VAN BRITO MD DATE: 09/23/24 1007 ELECTRONICALLY SIGNED BY: VAN BRITO MD DATE: 09/23/24 1157 ASSESSMENT: Acute ischemic stroke-right frontoparietal and temporal lobes POA Tobacco use disorder, POA Polysubstance use (cocaine, opiates, marijuana) POA Hypokalemia POA High risk for obstructive sleep apnea, STOP BANG SCORE 3, POA Subclinical hypothyroidism, TSH 4.86 POA Class I obesity (BMI 30.67 kg/m) PLAN: The patient will be admitted on the medical surgical floor under telemetry monitoring. Acute ischemic stroke-right frontoparietal and temporal lobes POA * Imaging: Non-contrast CT head negative for hemorrhage; MRI brain shows acute non-hemorrhagic infarct in the right frontoparietal and temporal lobes. CTA head and neck unremarkable, the transthoracic echocardiogram revealed ejection fraction of 55-60% with no segmental wall motion abnormalities. Patient does not meet criteria for thrombolysis due to symptom onset exceeding the 4.5-hour window. * Medications: Started with aspirin 81 mg and atorvastatin 40 mg daily for secondary prevention. * Swallow status: Patient failed bedside swallow evaluation multiple times today. Remains NPO due to risk of aspiration; re-evaluation by speech therapy scheduled in 2 days for possible modified barium swallow (MBSS). * Continue 0.9% NaCl at 75 mL/hour for gentle IV fluid support while NPO. * Blood pressure goal: Maintain permissive hypertension with blood pressure goal between 140 to 200 mm of hg * Neurologist Dr. Garcia recommended transesophageal echocardiogram. * Daily Physical therapy. * The patient will be closely monitored on telemetry for the first 24 hours and can be discontinued thereafter if clinically stable. continue neurological checks per stroke protocol. * We will repeat CT head without contrast - shows worsening interval enlargement of right frontotemporoparietal infarct now measuring 6.7 x 9.6 x 6.5 cm with mild mass effect on right lateral ventricle, without hemorrhagic transformati on. * Patient will be transferred to ICU with neuro checks q1h * maintenance and custodian supervisor called, transfer to [facility] for higher level care. Tobacco use disorder, POA Polysubstance use (cocaine, opiates, marijuana) POA * The patient reports marijuana use. According to his , he has a history of cocaine abuse but has been clean for the past 5 years. However, toxicology screening is positive for opioids and cocaine.We conducted comprehensive counseling with the patient regarding his polysubstance use, including cocaine, opiates, and marijuana. The discussion focused on the significant health risks associated with these substances, particularly their contribution to cardiovascular and cerebrovascular events, including stroke. The patient was advised on the importance of cessation. Hypokalemia POA * Potassium level 3.4; continue following the hypokalemia protocol for NPO status and provide potassium replacement as clinically indicated. High risk for obstructive sleep apnea, STOP BANG SCORE 3, POA * The patient is considered high risk for obstructive sleep apnea; recommendations for a sleep study will be provided at the time of discharge. P.r.n. medications for fever, pain, nausea, and constipation. DVT prophylaxis: Heparin 5000 IU subcutaneous TID. GI prophylaxis: Famotidine 20 mg IV b.i.d. daily. A.m. labs: CBC, BMP ATTESTATION BY PHYSICIAN I have seen and examined the patient. I reviewed the documentation, medical decision making, and treatment plan as noted by the resident provider above. I agree with the findings and plan of care. Daniel Hansen MD, SUNIL MD Sep 23, 2024 13:46 MARIIA LOUIS MD Sep 23, 2024 14:18
--- NOTE | 2024-09-23 15:00 | NUR ---
TRANSFER TO ICU FOR NEUROLOGY AND NEUROSURGEON [place]ICE [place] [facility] [place] MOLINA AND DR ALICIA IN AGREEMENT FOR TRANSFER AFTER DR JIMENEZ SPOKE WITH BOTH OF THEM. KARLY MELENDEZ
--- NOTE | 2024-09-23 15:00 | NUR ---
REPORT GIVEN TO GINI JONES RN FOR CONTINUITY OF PATIENT CARE. PATIENT TRANSFERRING TO 2ND FLOOR FOR HIGHER LEVEL OF CARE. MD SPOKE TO PATIENT AND FAMILY ABOUT THE TRANSFER. PATIENT BEING TAKEN DOWN BY DYNAMITER AND CHARGE NURSE. NO SIGNS AND SYMPTOMS OF DISTRESS NOTED.
--- NOTE | 2024-09-23 15:00 | NUR ---
TRANSFER MET WITH PT AND FAMILY REGARDING TRANSFER PT UNABLE TO SIGN SO SPOUSE [employer] SIGN CONSENT FOR TRANSFER INFORM MEAD WHILE PT WILL BE TRANSFER TO 2ND FLOOR ICU, SPOUSE VERBALIZED UNDERSTANDING. KARLY MELENDEZ
--- NOTE | 2024-09-23 15:37 | NUR ---
TRANSFER CALL PLACE TO [facility] SPOKE WITH SARIAH INFORMATION PROVIDED AND FAX TO [phone] UN REQUESTED AND WILL RETURN CALL . KARLY MELENDEZ
--- NOTE | 2024-09-23 17:25 | NUR ---
TRANSFER FOLLOW UP AWAITING [facility] APPROVAL. KARLY MELENDEZ
--- NOTE | 2024-09-23 18:50 | NUR ---
TRANSFER CALL BACK [facility] APPROVAL OBTAINED NOW WILL WORK ON AND BED, WILL CALL BACK. KARLY MELENDEZ
--- NOTE | 2024-09-23 19:00 | NUR ---
TRANSFER REPORT GIVEN TO INCOMING INSULATION PACKER,Shmuel BRANDT RN
[2024-09-23] MEDS: 0.9%NACL 1000ML 1,000 ML IV ONE (22:58)
--- NOTE | 2024-09-23 23:09 | CONS ---
[facility] CONSULTATION NOTE Date Patient Seen: Sep 23, 2024 Time of Visit: 2129 Supervising Physician: [Dr. Billy Grossman] Reason for Consultation: [ICU consult] Primary Care Physician: [none] Outpatient Specialists: [ ] Inpatient Consults: [[facility] TEAM-ICU consult] ] PROBLEM LIST: Acute CVA-left sided weakness-POA (non-hemorrhagic infarcts in the right fronto- parietal and temporal lobes with mild stenosis of the right M1 and M2 segments of middle cerebral artery) Polysubstance abuse-POA Mild hypokalemia-POA Chronic nicotine dependence PLAN: -Continue critical care management -Repeat head CT -Neuro checks q1H and PRN -Keep MAP> 65, IV fluids for volume -Smoking cessation education for more than 5 minutes -Patient is pending [facility] transfer to neuro ICU for neuro IR eval -Appreciate recx of neuro, Dr. Garcia -Counselling and patient education re: lifestyle modification -The rest of medical management per primary team HPI: [Patient is a 45-year-old male with PMH significant for chronic nicotine disorder and polysubstance abuse who was presented at the hospital concerning stroke-like symptoms. His common law is at bedside and reported symptoms of left-sided weakness with numbness as well as slurred speech with left facial asymmetry since yesterday. She claims that since April of this year, patient has been suffering from stroke-like symptoms but never went to hospital or got checked by a doctor because he keeps on refusing to go to the ER. Bedside RN reports that the patient was out partying last Sunday and most likely the patient got exposed from street drugs. Patient's stroke workup was significant for right frontoparietal and temporal lobe infarct with mild stenosis of the right M1 and M2 segments of the MCA. Repeat head CT showed interval enlargement of mild mass effect without hemorrhagic transformation. Patient was started on aspirin and high intensity statin. Neurology recommended to transfer the patient to a stroke center for further evaluation. He is pending neuro ICU tra nsferred to [facility]. On examination, patient is resting on the bed, very suboptimal responses to questions and let his answered concerns. He is unable to move he has left arm. NIH score per documentation was 13 and maintaining without progression. Slurred speech with left facial asymmetry and right facial numbness was present. Otherwise, patient maintains his airway without encephalopathy or signs of hemodynamic or neurologic decline. Goals of care was discussed with the and the patient verbalizing understanding and agreement.] PAST MEDICAL HX: see above PAST SURGICAL HX: noncontributory SOCIAL HISTORY: No tobacco, ETOH, or illicit drug use Coded Allergies: No Known Drug Allergies (Unverified Allergy, Unknown, 12/19/21) REVIEW OF SYSTEMS: 12 point ROS reviewed with patient. Pertinent positives mentioned above. Otherwise negative. PHYSICAL EXAM: GENERAL: alert, weak, awake, unable to assess orientation status due to patient's condition HEENT: EOMI, Sclera non icteric, moist mucosa NECK: Supple, no JVD, trachea midline LUNGS: Clear breath sounds bilaterally. No wheezes HEART: Regular rate and rhythm. Normal S1 and S2, without murmurs ABD: Abdomen soft, nontender. Bowel sounds present EXT: No clubbing cyanosis or edema, left-sided weakness NEURO: Alert and oriented to person, follows commands Vital Signs (last 8hr) Date Time Temp Pulse Resp B/P (MAP) Pulse Ox O2 Delivery O2 Flow Rate FiO2 09/23/24 17:42 65 17 136/94 98 09/23/24 17:27 69 21 142/94 97 09/23/24 17:15 88 17 145/98 96 09/23/24 16:57 68 21 137/98 94 09/23/24 16:42 70 22 139/99 97 09/23/24 16:15 68 21 130/98 97 09/23/24 16:12 66 19 138/100 97 09/23/24 15:57 72 20 133/96 98 09/23/24 15:45 73 20 130/95 97 09/23/24 15:42 67 17 138/81 96 09/23/24 15:15 61 10 126/91 97 LABS: Hematology Labs: Test 09/23/24 04:38 09/22/24 08:55 Range/Units White Blood Count 10.3 4.8-10.8 K/uL Red Blood Count 5.20 4.50-6.20 MIL/uL Hemoglobin 16.2 14.0-18.0 g/dL Hematocrit 45.2 42-54 % Mean Corpuscular Volume 86.9 79-99 fL Mean Corpuscular Hemoglobin 31.2 27.0-33.0 pg Mean Corpuscular Hemoglobin Concent 35.8 32.0-36.0 g/dL Red Cell Distribution Width 13.0 11.0-15.5 % Platelet Count 225 130-400 K/uL Mean Platelet Volume 10.1 7.5-10.5 fL Nucleated Red Blood Cells 0.0 0.0-0.19 % Immature Granulocyte % (Auto) 0.6 0-1 % Neutrophils (%) (Auto) 55.9 40.0-77.0 % Lymphocytes (%) (Auto) 31.3 21.0-51.0 % Monocytes (%) (Auto) 7.5 3.0-13.0 % Eosinophils (%) (Auto) 4.4 0.0-8.0 % Basophils (%) (Auto) 0.3 0.0-5.0 % Neutrophils # (Auto) 5.0 1.8-7.7 K/uL Lymphocytes # (Auto) 2.8 1.0-4.8 K/uL Monocytes # (Auto) 0.7 0.1-1.0 K/uL Eosinophils # (Auto) 0.40 0.00-0.70 K/uL Basophils # (Auto) 0.03 0.00-0.20 K/uL Absolute Immature Granulocyte (auto 0.05 0-1 K/uL Erythrocyte Sedimentation Rate 7 0-15 MM/HR Chemistry Labs: Test 09/23/24 17:50 09/23/24 04:38 09/22/24 08:55 09/22/24 08:33 Range/Units Whole Blood Glucose 82 70-110 MG/DL Sodium Level 137 136-145 mmol/L Potassium Level 3.4 L 3.5-5.1 mmol/L Chloride Level 101 101-111 mmol/L Carbon Dioxide Level 31 21-32 mmol/L Blood Urea Nitrogen 8 7-18 mg/dL Creatinine 1.1 0.5-1.3 mg/dL Glomerular Filtration Rate Calc 86 >90 mL/min Random Glucose 83 70-105 mg/dL Hemoglobin A1c 5.0 4.0-6.0 % Estimated Average Glucose (eAG) 97 70-126 mg/dL Total Calcium 8.8 8.5-10.1 mg/dL Total Creatine Kinase 75 21-232 U/L Troponin I High Sensitivity < 4 L 4-75 ng/L C-Reactive Protein, Quantitative 2.20 0.5-3.0 mg/L LDL Cholesterol 121 H 0-99 mg/dL Thyroid Stimulating Hormone (TSH) 4.86 H 0.36-3.74 uIU/mL Bedside Glucose Comment Notified Nurse Coagulation Labs: Test 09/22/24 08:55 Range/Units Prothrombin Time 9.8 9.6-11.6 SEC Prothromb Time International Ratio <= 0.93 0.85-1.15 Activated Partial Thromboplast Time 26.4 26.3-35.5 SEC DIAGNOSTICS / RADIOLOGY RESULTS: [ ] PLAN NEURO: Minimize central acting medications as possible. Fall Precautions. Well lighted room through the day and minimize interruptions through the night to prevent acute delirium. PULMONARY: Supplemental 02 as needed Titrate Fio2 to keep Spo2 > or = 90% DuoNebs and CPT as needed IS hourly while awake for pulmonary hygiene Out of bed to chair as tolerated VAP Bundle Vent/BIPAP Settings: [ ] Driving pressure: [ ] P Plat: [ ] Static C: [ ] Static R: [ ] P/F Ratio: [ ] CARDIOVASCULAR: Follow hemodynamics. Titrate vasopressor to keep MAP >65 or systolic blood pressure >95mmHg DIPS: [ ] LINES: [ ] GI & NUTRITION: Continue nutritional support Aspirations precautions Prokinetic agents and laxatives as needed KIDNEYS & ELECTROLYTES: Strict monitoring of intake and output Daily weights Avoid nephrotoxic agents Monitor electrolytes and replace as needed Goal urine output of 30mL/hr or 0.5mL/kg/hr Urine output: [ ] Fluid Balance: [ ] ENDOCRINE: Maintain blood glucose between 100-180 at all times. Insulin sliding scale for blood glucose management INFECTIOUS DISEASE: Trend temperature. Osei-culture if febrile. Micro: [ ] Antibiotics: [ ] HEMATOLOGY & COAGULATION: Monitor H&H. Keep Hgb > 7 Transfuse 1 unit of PRBC for Hgb < 7 Transfuse 1 pack of platelets of platelets < 20, 000 Watch for any signs and symptoms of bleeding SKIN: Pressure ulcer prevention per facility protocol Rehab: PT/OT Prophylaxis: GI: [Pepcid] DVT: [Heparin] Code Status: Full Resuscitation Disposition: [ICU] Other: Total patient care time: 35 minutes NATHANIEL BOWIE AGPCNP Sep 23, 2024 23:09
[2024-09-24] VITALS: O2SAT 97
[2024-09-24 00:12] VITALS: BP 166/100; PULSE 70; RESP 19
[2024-09-24] MEDS: NOREPINEPHRIN 4MG/NS 250ML 250 ML IV PRN (00:13)
--- NOTE | 2024-09-24 00:18 | NUR ---
Report to [facility] Report given to NORA Reed from [facility]. all questions answered. informed patient and at bedside of new room number 4228. awaiting EMS for transport.
--- NOTE | 2024-09-24 00:43 | NUR ---
Patient picked up by EMS patient at bedside and took all belongings from room. patient successfully transferred to EMS stretcher and taken off icu unit. denies pain or shortness of breath.
--- NOTE | 2024-09-24 18:17 | DS ---
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 He described the onset as abrupt, without any preceding trauma or provoking factor. The patient reported that he had been experiencing weakness in his left arm for the past two weeks but had dismissed it as fatigue from working night shifts. He described a general sense of tiredness and poor sleep, which he and his have attributed to his demanding schedule and night shifts. He denied any involvement of the lower extremities, and there were no associated symptoms such as vision changes, chest pain, shortness of breath, or loss of consciousness. Denied any prior history of similar symptoms, myocardial infarction, stroke, or previous hospitalizations. At the time of presentation, the patient was afebrile with a blood pressure of 155/105 mmHg; other vital signs were unremarkable. Laboratory results revealed an unremarkable CBC, potassium of 3.3, negative troponin, and other electrolytes within normal limits. LDL cholesterol was 121, and TSH was mildly elevated at 4.86. Urine toxicology was positive for opiates and cocaine. The patient was evaluated in ED Room 13 with his sister present at the bedside. Vital signs at the time of assessment included a blood pressure of 147/96 mmHg, pulse rate of 69 bpm, and he was breathing comfortably on room air. The patient was noted to have obvious left-sided facial droop, with disorganized and zwiqdhqbm-mt-jctekrhlig speech. He also reports a headache. Estimated NIHSS score is 11 indicates moderate stroke severity. A non-contrast CT head showed no evidence of acute intracranial pathology. However, brain MRI revealed an acute non-hemorrhagic infarct involving the right frontoparietal and temporal lobes, along with mild stenosis of the right M1 and M2 segments of the middle cerebral artery. The patient received a 300 mg aspirin suppository at this time neurology consultation was requested. On floor, He was evaluated AAO x3. He had left facial droop and difficulty with the speech. He was unable to move his left hand. His vitals were stable. Pertinent labs potassium 3.4, creatinine 1.1, TSH 4.8. CTA head/neck was unremarkable. Started on mg and atorvastatin 40 mg. Neurology on tammy marleen. Daily Physical therapy. Patient deteriorated with increased weakness in his left upper extremity. Repeat CT head/brain without contrast ordered, showing worsening interval enlargement of right frontotemporoparietal infarct now measuring 6.7 x 9.6 x 6.5 cm with mild mass effect on right lateral ventricle, without hemorrhagic transformation. Patient will be transferred to ICU, with neuro checks ever hour. 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 He was transferred to [facility] at 00:43 AM on 09/24/24. [employer]er(s): Neurology, Neurosurgery, Pulmonology, Cardiology Procedure(s): PATIENT: BUSHRA MARKS MR#: [id number] : 1980 SEX: M AGE: 44 LOCATION: [facility] ORDER 1032 STATUS: ADM IN REPORT#: [id number] SERVICE 1030 REASON: WORSENING CLINICALLY ORDERING PHYSICIAN: DOE RIVERA MD PROCEDURE: HEAD WO - CT HEAD/BRAIN W/O CONTRAST ADDENDUM REPORT ADDENDUM: Results were shared by telephone at 2:31 pm on 09/23/24 and acknowledged by Maggie Ewing /[place] EXAM: CT Head Without IV contrast. CLINICAL HISTORY: WORSENING CLINICALLY, ct follow up recent stroke TECHNIQUE: Axial computed tomography images of the head/brain without intravenous contrast. COMPARISON: CT dated September 22, 2024 FINDINGS: Interval increased area of low-attenuation within the right frontal and parietal lobes now with overall dimensions of approximately 6.7 x 9.6 x 6.5 cm in craniocaudal, AP, and transverse dimensions respectively. There is no hemorrhagic transformation appreciated. There is edema resulting in mild mass effect upon the right lateral ventricle. There is no significant midline shift. Ventricles remain normal in caliber. Basal cisterns remain patent. Orbits and globes remain within normal limits. Paranasal sinuses and mastoid air cells are clear. The calvarium remains intact. IMPRESSION: 1. Interval enlargement of right frontotemporoparietal infarct now measuring 6.7 x 9.6 x 6.5 cm with mild mass effect on right lateral ventricle, without hemorrhagic transformation. /[place] DICTATED BY: GEORGE CHILDERS Jr., MD DATE: 09/23/241431 ELECTRONICALLY SIGNED BY: DATE: EXAM: CT Head Without IV contrast. CLINICAL HISTORY: WORSENING CLINICALLY, ct follow up recent stroke TECHNIQUE: Axial computed tomography images of the head/brain without intravenous contrast. COMPARISON: CT dated September 22, 2024 FINDINGS: Interval increased area of low-attenuation within the right frontal and parietal lobes now with overall dimensions of approximately 6.7 x 9.6 x 6.5 cm in craniocaudal, AP, and transverse dimensions respectively. There is no hemorrhagic transformation appreciated. There is edema resulting in mild mass effect upon the right lateral ventricle. There is no significant midline shift. Ventricles remain normal in caliber. Basal cisterns remain patent. Orbits and globes remain within normal limits. Paranasal sinuses and mastoid air cells are clear. The calvarium remains intact. IMPRESSION: 1. Interval enlargement of right frontotemporoparietal infarct now measuring 6.7 x 9.6 x 6.5 cm with mild mass effect on right lateral ventricle, without hemorrhagic transformation. /[place] DICTATED BY: GEORGE CHILDERS Jr., MD DATE: 09/23/241425 ELECTRONICALLY SIGNED BY: GEORGE CHILDERS Jr., MD DATE: 09/23/241425 PATIENT: BUSHRA MARKS MR#: [id number] : 1980 SEX: M AGE: 44 LOCATION: [facility] ORDER 1531 STATUS: ADM IN [facility] REPORT#: [id number] SERVICE 0807 REASON: TIA VS STROKE ORDERING PHYSICIAN: PRAKASH RUDD MD PROCEDURE: ECHO CMP - ECHO 2-D COMPLETE APPROVED REPORT EXAM: Two-dimensional and M-mode echocardiogram with Doppler and color Doppler. INDICATION ICD: TIA vs Stroke 2D Dimensions RVDd 3.7 cm LVEF(%) 61.8 (>50%) LVED Vol(simp.) 89.0 mL IVSd 0.9 (0.7-1.1cm) FS(%) 33 % LVES Vol(simp.) 50.0 mL LVDd 3.7 (3.8-5.6cm) LA (2D) 3.0 (1.6-4.0cm) LVEF(%, simp.) 45 % PWd 1.0 (0.7-1.1cm) Ao Root(2D) 2.9 (2.0-3.7cm) LA ESV INDEX (BP) 14.05 mL/m2 LVDs 2.5 (2.5-4.0cm) LVOT diam 1.9 (1.8-2.4cm) Deformation Strain Apical 4 -13.2 % Apical 2 -12.9 % Apical 3 -8.5 % Global Strain -11.5 % M-Mode Dimensions EPSS 0.8 cm LA (MM) 2.5 (1.6-4.0cm) Ao Root(MM) 3.4 (2.0-3.7cm) Aortic Valve AoV Vmax 1.0 m/s Ao Peak GR 3.7 mmHg LVOT Vmax 0.9 m/s AoV VTI 0.2 m Ao Mean GR 2.1 mmHg LVOT VTI 0.18 m MARIAMA (VMAX) 2.61 cm2 MARIAMA (VTI) 2.6 cm2 Mitral Valve MV E Vmax 73.7 cm/s DECEL Time 169 ms MV A Vmax 43.0 cm/s P 1/2 T 59 ms E/A ratio 1.7 MVA (PHT) 3.7 cm2 TDI E/E' Medial 11.1 E/E' Lateral 8.5 Medial E' Peak V 6.62 cm/s Lateral E' Peak V 8.66 cm/s Pulmonary Valve PV Vmax 0.7 m/s PV VTI 0.14 m PV Mean GR 1.0 mmHg PV Peak GR 2.0 mmHg Left Ventricle The left ventricle is normal size. There is normal LV segmental wall motion. There is normal left ventricular wall thickness. LVEF is 55-60%. The left ventricular diastolic function is normal. Right Ventricle The right ventricle is normal size. The right ventricular systolic function is normal. Atria The left atrium size is normal. The right atrium size is normal. Aortic Valve The aortic valve is normal in structure. No aortic regurgitation is present. There is no aortic valvular stenosis. Mitral Valve The mitral valve is normal in structure. There is no mitral valve regurgitation noted. There is no mitral valve stenosis. Tricuspid Valve The tricuspid valve is normal in structure. There is no tricuspid valve regurgitation noted. Pulmonic Valve The pulmonary valve is normal in structure. There is no pulmonic valvular regurgitation. Great Vessels The aortic root is normal in size. The IVC is normal in size and collapses >50% with inspiration. Pericardium There is no pericardial effusion. Conclusion There is normal LV segmental wall motion. LVEF is 55-60%. The aortic root is normal in size. There is no pericardial effusion. DICTATED BY: VAN BRITO MD DATE: 09/23/24 1007 ELECTRONICALLY SIGNED BY: VAN BRITO MD DATE: 09/23/24 1157 PATIENT: BUSHRA MARKS MR#: [id number] : 1980 SEX: M AGE: 44 LOCATION: [facility] ORDER 1531 STATUS: ADM IN REPORT#: [id number] SERVICE 1527 REASON: TIA VS STROKE ORDERING PHYSICIAN: PRAKASH RUDD MD PROCEDURE: CTA [facility] - CT ANGIO HEAD AND NECK EXAM: CTA Head and Neck with and without Intravenous Contrast. CLINICAL HISTORY: TIA VS STROKE TECHNIQUE: Axial CTA images of the head and neck performed with and without intravenous contrast in the arterial phase. Coronal and sagittal reformatted images were generated and reviewed. 3-D reformatted images generated on an independent workstation were also reviewed. NASCET criteria were used in assessment of stenosis. CONTRAST: Contrast injected without incident. COMPARISON: None provided. FINDINGS: VASCULATURE:NECK: COMMON CAROTID ARTERIES No significant stenosis. No dissection or occlusion. EXTERNAL CAROTID ARTERIES Patent. INTERNAL CAROTID ARTERIES No stenosis by NASCET criteria. No dissection or occlusion. VERTEBRAL ARTERIES No significant stenosis. No dissection or occlusion. HEAD: ANTERIOR CEREBRAL ARTERIES No significant stenosis. No occlusion. No aneurysm. MIDDLE CEREBRAL ARTERIES No significant stenosis. No occlusion. No aneurysm. POSTERIOR CEREBRAL ARTERIES No significant stenosis. No occlusion. No aneurysm. BASILAR ARTERY No significant stenosis. No occlusion. No aneurysm. OTHER: SOFT TISSUES No acute finding. BONES No acute osseous abnormality. IMPRESSION: Unremarkable CTA of the head and neck. /[place] DICTATED BY: GISELA GRIFFITHS MD DATE: 09/22/241758 ELECTRONICALLY SIGNED BY: GISELA GRIFFITHS MD DATE: 09/22/241758 PATIENT: BUSHRA MARKS MR#: [id number] : 1980 SEX: M AGE: 44 LOCATION: [facility] ORDER 1235 STATUS: ADM IN REPORT#: [id number] SERVICE 1233 REASON: Slurred speech, dysarthria, r/o stroke ORDERING PHYSICIAN: FRANCHESKA CANDELARIA MD PROCEDURE: CAROTID - US CAROTID DUPLEX ADDENDUM REPORT ADDENDUM: Results were shared by telephone at 5:07 pm on 09-22-24 and acknowledged by FRANCHESKA Fry. /[place] ADDENDUM: EXAM: US Duplex Bilateral Carotid and Vertebral Arteries. CLINICAL HISTORY: Slurred speech, dysarthria, r/o stroke TECHNIQUE: Real-time ultrasound scan of the bilateral carotid and vertebral arteries, 2-D alcaraz scale, with color Doppler flow and spectral waveform analysis. COMPARISON: None provided. FINDINGS: RIGHT COMMON CAROTID ARTERY: No occlusion or significant stenosis. RIGHT INTERNAL CAROTID ARTERY: No occlusion or significant stenosis. RIGHT EXTERNAL CAROTID ARTERY: No occlusion or significant stenosis. RIGHT VERTEBRAL ARTERY: Antegrade flow. RIGHT ICA/CCA RATIO: Within normal limits. LEFT COMMON CAROTID ARTERY: No occlusion or significant stenosis. LEFT INTERNAL CAROTID ARTERY: No occlusion or significant stenosis. LEFT EXTERNAL CAROTID ARTERY: No occlusion or significant stenosis. LEFT VERTEBRAL ARTERY: Antegrade flow. LEFT ICA/CCA RATIO: Within normal limits. SOFT TISSUES: No incidental abnormalities. IMPRESSION: No hemodynamically significant stenosis by NASCET criteria. Results were relayed to the clinical team at the time of this addendum. /[place] EXAM: US Duplex Bilateral Carotid and Vertebral Arteries. CLINICAL HISTORY: Slurred speech, dysarthria, r/o stroke TECHNIQUE: Real-time ultrasound scan of the bilateral carotid and vertebral arteries, 2-D alcaraz scale, with color Doppler flow and spectral waveform analysis. COMPARISON: None provided. FINDINGS: RIGHT COMMON CAROTID ARTERY: 37 cm/s RIGHT INTERNAL CAROTID ARTERY: 103 cm/s RIGHT EXTERNAL CAROTID ARTERY: 69 cm/s RIGHT VERTEBRAL ARTERY: Antegrade flow at 53 cm/s. RIGHT ICA/CCA RATIO: 2.8. LEFT COMMON CAROTID ARTERY: 64 cm/s LEFT INTERNAL CAROTID ARTERY: 96 cm/s LEFT EXTERNAL CAROTID ARTERY: 88 cm/s LEFT VERTEBRAL ARTERY: Antegrade flow at 43 cm/s. LEFT ICA/CCA RATIO: 1.5 SOFT TISSUES: No incidental abnormalities. IMPRESSION: Increased right ICA/CCA ratio suggest a significant stenosis. Recommend CT angiography of the neck for further evaluation. /[place] DICTATED BY: GEORGE CHILDERS Jr., MD DATE: 09/22/24 171 ELECTRONICALLY SIGNED BY: DATE: EXAM: US Duplex Bilateral Carotid and Vertebral Arteries. CLINICAL HISTORY: Slurred speech, dysarthria, r/o stroke TECHNIQUE: Real-time ultrasound scan of the bilateral carotid and vertebral arteries, 2-D alcaraz scale, with color Doppler flow and spectral waveform analysis. COMPARISON: None provided. FINDINGS: RIGHT COMMON CAROTID ARTERY: 37 cm/s RIGHT INTERNAL CAROTID ARTERY: 103 cm/s RIGHT EXTERNAL CAROTID ARTERY: 69 cm/s RIGHT VERTEBRAL ARTERY: Antegrade flow at 53 cm/s. RIGHT ICA/CCA RATIO: 2.8. LEFT COMMON CAROTID ARTERY: 64 cm/s LEFT INTERNAL CAROTID ARTERY: 96 cm/s LEFT EXTERNAL CAROTID ARTERY: 88 cm/s LEFT VERTEBRAL ARTERY: Antegrade flow at 43 cm/s. LEFT ICA/CCA RATIO: 1.5 SOFT TISSUES: No incidental abnormalities. IMPRESSION: Increased right ICA/CCA ratio suggest a significant stenosis. Recommend CT angiography of the neck for further evaluation. /[place] DICTATED BY: GEORGE CHILDERS Jr., MD DATE: 09/22/241636 ELECTRONICALLY SIGNED BY: GEORGE CHILDERS Jr., MD DATE: 09/22/241636 PATIENT: BUSHRA MARKS MR#: [id number] : 1980 SEX: M AGE: 44 LOCATION: [facility] ORDER 1226 STATUS: ADM IN REPORT#: [id number] SERVICE 122 REASON: S/s facial droop, dysarthria, r/o stroke ORDERING PHYSICIAN: FRANCHESKA CANDELARIA MD PROCEDURE: BRAIN WWO - MR BRAIN WWO CON ADDENDUM REPORT ADDENDUM: Results were shared by telephone at 3:22 pm on 09-22-24 and acknowledged by Francheska Fry. /[place] EXAM: MR Brain with and without Intravenous Contrast. CLINICAL HISTORY: hx stroke like symptoms TECHNIQUE: Multisequence, multiplanar magnetic resonance images acquired of the brain with and without intravenous contrast. COMPARISON: CT images from earlier today FINDINGS: BRAIN: Multifocal areas of diffusion restriction with corresponding low ADC values in the right fronto-parietal and temporal lobes. No intracranial mass or hemorrhage. No midline shift or extra-axial fluid collection. No cerebellar tonsillar ectopia. No abnormal enhancement. Mild luminal narrowing of the M1 and M2 segments of the right middle cerebral artery. VENTRICLES: No hydrocephalus. ORBITS: The orbits are normal. SINUSES AND MASTOIDS: The sinuses and mastoid air cells are clear. BONES: No acute fracture or aggressively appearing osseous lesion. IMPRESSION: 1. Acute non-hemorrhagic infarcts in the right fronto-parietal and temporal lobes with mild stenosis of the right M1 and M2 segments of middle cerebral artery. /[place] DICTATED BY: GEORGE CHILDERS Jr., MD DATE: 09/22/241529 ELECTRONICALLY SIGNED BY: DATE: EXAM: MR Brain with and without Intravenous Contrast. CLINICAL HISTORY: hx stroke like symptoms TECHNIQUE: Multisequence, multiplanar magnetic resonance images acquired of the brain with and without intravenous contrast. COMPARISON: CT images from earlier today FINDINGS: BRAIN: Multifocal areas of diffusion restriction with corresponding low ADC values in the right fronto-parietal and temporal lobes. No intracranial mass or hemorrhage. No midline shift or extra-axial fluid collection. No cerebellar tonsillar ectopia. No abnormal enhancement. Mild luminal narrowing of the M1 and M2 segments of the right middle cerebral artery. VENTRICLES: No hydrocephalus. ORBITS: The orbits are normal. SINUSES AND MASTOIDS: The sinuses and mastoid air cells are clear. BONES: No acute fracture or aggressively appearing osseous lesion. IMPRESSION: 1. Acute non-hemorrhagic infarcts in the right fronto-parietal and temporal lobes with mild stenosis of the right M1 and M2 segments of middle cerebral artery. /[place] DICTATED BY: GEORGE CHILDERS Jr., MD DATE: 09/22/241507 ELECTRONICALLY SIGNED BY: GEORGE CHILDERS Jr., MD DATE: 09/22/241507 PATIENT: BUSHRA MARKS MR#: [id number] : 1980 SEX: M AGE: 44 LOCATION: [facility] ORDER STATUS: [facility] REPORT#: [id number] SERVICE 0833 REASON: weakness right upper arm/ and face ORDERING PHYSICIAN: TANIA BURNO MD PROCEDURE: HEAD WO - CT HEAD/BRAIN W/O CONTRAST EXAM: CT Head Without IV contrast. CLINICAL HISTORY: Weakness right upper arm and face TECHNIQUE: Axial computed tomography images of the head/brain without intravenous contrast. COMPARISON: None provided. FINDINGS: BRAIN: No evidence of acute hemorrhage. No mass lesion. No CT evidence for acute territorial infarct. No midline shift or extra-axial collections. VENTRICLES: No hydrocephalus. ORBITS: The orbits are unremarkable. SINUSES AND MASTOIDS: The paranasal sinuses and mastoid air cells are clear. BONES: No fracture. SOFT TISSUES: Unremarkable. IMPRESSION: No acute intracranial abnormality. /[place] DICTATED BY: GEORGE CHILDERS Jr., MD DATE: 09/22/24953 ELECTRONICALLY SIGNED BY: GEORGE CHILDERS Jr., MD DATE: 09/22/24953 Assessment/Plan: ASSESSMENT: Acute ischemic stroke-right frontoparietal and temporal lobes POA Tobacco use disorder, POA Polysubstance use (cocaine, opiates, marijuana) POA Hypokalemia POA High risk for obstructive sleep apnea, STOP BANG SCORE 3, POA Subclinical hypothyroidism, TSH 4.86 POA Class I obesity (BMI 30.67 kg/m) PLAN: The patient will be admitted on the medical surgical floor under telemetry monitoring. Acute ischemic stroke-right frontoparietal and temporal lobes POA * Imaging: Non-contrast CT head negative for hemorrhage; MRI brain shows acute non-hemorrhagic infarct in the right frontoparietal and temporal lobes. CTA head and neck unremarkable, the transthoracic echocardiogram revealed ejection fraction of 55-60% with no segmental wall motion abnormalities. Patient does not meet criteria for thrombolysis due to symptom onset exceeding the 4.5-hour window. * Medications: Started with aspirin 81 mg and atorvastatin 40 mg daily for secondary prevention. * Swallow status: Patient failed bedside swallow evaluation multiple times today. Remains NPO due to risk of aspiration; re-evaluation by speech therapy scheduled in 2 days for possible modified barium swallow (MBSS). * Continue 0.9% NaCl at 75 mL/hour for gentle IV fluid support while NPO. * Blood pressure goal: Maintain permissive hypertension with blood pressure goal between 140 to 200 mm of hg * Neurologist Dr. Garcia recommended transesophageal echocardiogram. * Daily Physical therapy. * The patient will be closely monitored on telemetry for the first 24 hours and can be discontinued thereafter if clinically stable. continue neurological checks per stroke protocol. * We will repeat CT head without contrast - shows worsening interval enlargement of right frontotemporoparietal infarct now measuring 6.7 x 9.6 x 6.5 cm with mild mass effect on right lateral ventricle, without hemorrhagic transformation. 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 Tobacco use disorder, POA Polysubstance use (cocaine, opiates, marijuana) POA * The patient reports marijuana use. According to his , he has a history of cocaine abuse but has been clean for the past 5 years. However, toxicology screening is positive for opioids and cocaine.We conducted comprehensive counseling with the patient regarding his polysubstance use, including cocaine, opiates, and marijuana. The discussion focused on the significant health risks associated with these substances, particularly their contribution to cardiovascular and cerebrovascular events, including stroke. The patient was advised on the importance of cessation. Hypokalemia POA * Potassium level 3.4; continue following the hypokalemia protocol for NPO status and provide potassium replacement as clinically indicated. High risk for obstructive sleep apnea, STOP BANG SCORE 3, POA * The patient is considered high risk for obstructive sleep apnea; recommendations for a sleep study will be provided at the time of discharge. P.r.n. medications for fever, pain, nausea, and constipation. DVT prophylaxis: Heparin 5000 IU subcutaneous TID. GI prophylaxis: Famotidine 20 mg IV b.i.d. daily. A.m. labs: CBC, BMP Discharge Instructions: Patient transferred to [facility] Home Medications: Active Scripts Tamsulosin HCl (Flomax) 0.4 Mg Cap.er.24h, 0.4 MG PO DAILY, #10 CAPSULE. Prov:CEM LOZANO 12/19/21 Ondansetron (Ondansetron Odt) 4 Mg Tab.rapdis, 4 MG PO TID, #10 TAB Prov:CEM LOZANO 12/19/21 Naproxen (Naproxen) 500 Mg Tablet., 500 MG PO BIDPC, #15 TAB Prov:CEM LOZANO 12/19/21 Acetaminophen with Codeine (Acetaminophen-Cod #3 Tablet) 1 Each Tablet, 1 TAB PO Q4H PRN for PAIN, #7 TAB Prov:CEM LOZANO 12/19/21 Time spent arranging discharge: 1-30 minutes ATTESTATION BY PHYSICIAN I have seen and examined the patient. I reviewed the documentation, medical decision making, and treatment plan as noted by the resident provider above. I agree with the findings and plan of care. Daniel Hansen MD, SUNIL MD Sep 24, 2024 18:17
== END 2024-09-24 00:43 | disposition short-term general hospital (02) | DRG 66 ==
LOC: EDH 08:26 → EDHIP 08:27 → 4BH 22:30 → 2BH 09-23 14:49
PROVIDERS: ADMIT Internal Medicine; ATTEND Internal Medicine
DX: I63.9 Cerebral infarction, unspecified (principal); E66.811 Obesity, class 1; E87.6 Hypokalemia; F17.210 Nicotine dependence, cigarettes, uncomplicated; R29.711 NIHSS score 11; F14.90 Cocaine use, unspecified, uncomplicated; G47.33 Obstructive sleep apnea (adult) (pediatric); E03.9 Hypothyroidism, unspecified; F19.90 Other psychoactive substance use, unspecified, uncomplicated; R29.810 Facial weakness; Z20.822 Contact with and (suspected) exposure to COVID-19; Z85.6 Personal history of leukemia; Z87.11 Personal history of peptic ulcer disease; Z79.899 Other long term (current) drug therapy; Z68.33 Body mass index [BMI] 33.0-33.9, adult; Z79.82 Long term (current) use of aspirin
CPT/HCPCS: 36415; 70450; 70496; 70498; 70553; 71045; 80048; 80305; 81001; 82550; 82948; 83036; 83721; 84443; 84484; 85025; 85027; 85610; 85651; 85730; 86140; 87426; 87804; 92522; 92610; 93005; 93306; 93356; 93880; 96374; 96375; 99285; G0378; J1644; J2270; J2405; J3480; J3490; Q9967; A9575